=== PATIENT | male | born 1940 | race Caucasian/White ===

== ENCOUNTER 2017-11-05 13:05 | Inpatient (IN) | payer MEDICARE ==
[2017-11-05] MEDS ORDERED: SODIUM CHLORIDE 0.9% 500 ML IV ONE (14:19)
[2017-11-05] MEDS ORDERED: ONDANSETRON 4 MG/2 ML VIAL IVP STA (14:19)
[2017-11-05] MEDS ORDERED: SODIUM CHLORIDE 0.9% 1,000 ML IV ONE ×2 (14:19→16:23)
--- NOTE | 2017-11-05 14:22 | ED ---
General Adult HPI - General Chief complaint: Recheck/Abnormal Lab/Rx Stated complaint: fever, diarrhea Time Seen by Provider: 11/05/17 13:35 Source: patient, RN notes reviewed Mode of arrival: wheelchair Limitations: no limitations - History of Present Illness Initial comments: This is a 77-year-old male with past medical history significant for bladder cancer. Patient states he had the original tumor removed using cystoscopy. Patient is also a chemotherapy which was stopped on October 30 because he couldn't tolerate the chemo anymore. Patient also is receiving radiation therapy. Patient states his last radiation treatment was on Sunday. Patient states the radiation is also caused him to have diarrhea and he has been having now for one week. Patient also is complaining of some internal rectal pain. Patient states she is also having some blood with his diarrhea at this point. Patient comes in today because of the pain and the fact that he has not been eating anything. Patient states she's nauseated but has not vomited. Patient also had 103 fever according to his gave him 2 extra strength Tylenol also here today. Patient denies any cough or difficult to breathing or shortness of breath. Patient denies any chest pain. Patient denies any dysuria hematuria urinary frequency. Patient does state that his stream is weak and over the last few weeks. Patient denies any skin lesions rashes or areas of erythema. - Related Data Home Medications Medication Instructions Recorded Confirmed ALPRAZolam [Xanax] 0.5 mg PO Q6H PRN 11/05/17 11/05/17 Acetaminophen/Diphenhydramine 1 tab PO HS 11/05/17 11/05/17 [Tylenol PM 500-25mg] Acyclovir 400 mg PO DAILY 11/05/17 11/05/17 Aspirin EC [Ecotrin Low Dose] 81 mg PO DAILY 11/05/17 11/05/17 Cilostazol [Pletal] 50 mg PO DAILY 11/05/17 11/05/17 Doxazosin Mesylate [Cardura] 8 mg PO HS 11/05/17 11/05/17 Hydrocortisone [Cortef] 5 mg PO HS 11/05/17 11/05/17 Hydrocortisone [Cortef] 15 mg PO QAM 11/05/17 11/05/17 Insulin NPL/Insulin Lispro 16 unit SQ 11/05/17 11/05/17 [humaLOG MIX 75-25 VIAL] Insulin NPL/Insulin Lispro 30 unit SQ QAM 11/05/17 11/05/17 [humaLOG MIX 75-25 VIAL] Levothyroxine Sodium [Synthroid] 75 mcg PO DAILY 11/05/17 11/05/17 Losartan Potassium 100 mg PO DAILY 11/05/17 11/05/17 Metoprolol Succinate (ER) [Toprol 25 mg PO DAILY 11/05/17 11/05/17 Xl] Metoprolol Succinate (ER) [Toprol 50 mg PO HS 11/05/17 11/05/17 Xl] Midodrine HCl [ProAmatine] 2.5 mg PO HS 11/05/17 11/05/17 Prochlorperazine [Compazine] 10 mg PO Q6H PRN 11/05/17 11/05/17 Rosuvastatin [Crestor] 10 mg PO HS 11/05/17 11/05/17 Allergies Allergy/AdvReac Type Severity Reaction Status Date / Time Iodinated Contrast- Oral and AdvReac KIDNEY Verified 11/05/17 14:11 IV Dye ISSUES Review of Systems ROS Statement: Those systems with pertinent positive or pertinent negative responses have been documented in the HPI. ROS Other: All systems not noted in ROS Statement are negative. Past Medical History Past Medical History: CVA/TIA, Diabetes Mellitus, Hypertension, Myocardial Infarction ([place]) Additional Past Medical History / Comment(s): bladder ca, adrenal insuff, kidney disease stage 3 History of Any Multi-Drug Resistant Organisms: None Reported Past Surgical History: Heart Catheterization, Orthopedic Surgery Additional Past Surgical History / Comment(s): shoulder Past Psychological History: No Psychological Hx Reported Smoking Status: Former smoker Past Alcohol Use History: Occasional Past Drug Use History: None Reported General Exam - General Exam Comments Initial Comments: GENERAL: Patient is well-developed and well-nourished. Patient is nontoxic and well- hydrated and is in mild distress. ENT: Neck is soft and supple. No significant lymphadenopathy is noted. Oropharynx is clear. Moist mucous membranes. Neck has full range of motion without eliciting any pain. EYES: The sclera were anicteric and conjunctiva were pink and moist. Extraocular movements were intact and pupils were equal round and reactive to light. Eyelids were unremarkable. PULMONARY: Unlabored respirations. Good breath sounds bilaterally. No audible rales rhonchi or wheezing was noted. CARDIOVASCULAR: There is a regular rate and rhythm without any murmurs gallops or rubs. ABDOMEN: Patient has some mild pubic tenderness. No rebound or guarding noted. No palpable organomegaly was noted. There is no palpable pulsatile mass. SKIN: Skin is clear with no lesions or rashes and otherwise unremarkable. NEUROLOGIC: Patient is alert and oriented x3. Cranial nerves II through XII are grossly intact. Motor and sensory are also intact. Normal speech, volume and content. Symmetrical smile. MUSCULOSKELETAL: Normal extremities with adequate strength and full range of motion. No lower extremity swelling or edema. No calf tenderness. LYMPHATICS: No significant lymphadenopathy is noted PSYCHIATRIC: Normal psychiatric evaluation. Limitations: no limitations Course Vital Signs 11/05/17 11/05/17 13:35 16:02 Temperature 98.4 F 99.1 F Pulse Rate 84 93 Respiratory 20 20 Rate Blood Pressure 108/55 130/58 O2 Sat by Pulse 98 94 L Oximetry Medical Decision Making - Medical Decision Making Patient's x-ray shows no acute abnormality. I spoke with the [place] emergency department physicians I admitted the patient and consult oncology - Lab Data Result diagrams: 11/05/17 14:54 11/05/17 14:54 Lab Results 11/05/17 11/05/17 11/05/17 Range/Units 14:54 14:54 14:54 WBC 7.7 (3.8-10.6) k/uL RBC 2.41 L (4.30-5.90) m/uL Hgb 8.6 L (13.0-17.5) gm/dL Hct 24.3 L (39.0-53.0) % MCV 100.7 H (80.0-100.0) fL MCH 35.6 H (25.0-35.0) pg MCHC 35.4 (31.0-37.0) g/dL RDW 14.2 (11.5-15.5) % Plt Count 150 (150-450) k/uL Neutrophils % 85 % Lymphocytes % 3 % Monocytes % 9 % Eosinophils % 1 % Basophils % 0 % Neutrophils # 6.5 (1.3-7.7) k/uL Lymphocytes # 0.3 L (1.0-4.8) k/uL Monocytes # 0.7 (0-1.0) k/uL Eosinophils # 0.1 (0-0.7) k/uL Basophils # 0.0 (0-0.2) k/uL Macrocytosis Slight Sodium 133 L (137-145) mmol/L Potassium 3.5 (3.5-5.1) mmol/L Chloride 96 L (98-107) mmol/L Carbon Dioxide 22 (22-30) mmol/L Anion Gap 15 mmol/L BUN 41 H (9-20) mg/dL Creatinine 4.09 H (0.66-1.25) mg/dL Est GFR (CKD-EPI)AfAm 15 (>60 ml/min/1.73 sqM) Est GFR (CKD-EPI)NonAf 13 (>60 ml/min/1.73 sqM) Glucose 211 H (74-99) mg/dL Plasma Lactic Acid [place] (0.7-2.0) mmol/L Calcium 8.4 (8.4-10.2) mg/dL Total Bilirubin 0.5 (0.2-1.3) mg/dL AST 24 (17-59) U/L ALT 28 (21-72) U/L Alkaline Phosphatase 76 (38-126) U/L Total Protein 4.9 L (6.3-8.2) g/dL Albumin 3.1 L (3.5-5.0) g/dL Urine Color Urine Appearance (Clear) Urine pH (5.0-8.0) Ur Specific [place] (1.001-1.035) Urine Protein (Negative) Urine Glucose (UA) (Negative) Urine Ketones (Negative) Urine Blood (Negative) Urine Nitrite (Negative) Urine Bilirubin (Negative) Urine Urobilinogen (<2.0) mg/dL Ur Leukocyte Esterase (Negative) Urine RBC (0-5) /hpf Urine WBC (0-5) /hpf Amorphous Sediment (None) /hpf Hyaline Casts (0-2) /lpf Urine Mucus (None) /hpf Blood Type A Positive Blood Type Recheck CABO Indicated Antibody Screen POSITIVE Spec Expiration Date 11/08/2017235311/05/17 11/05/17 Range/Units 14:54 16:06 WBC (3.8-10.6) k/uL RBC (4.30-5.90) m/uL Hgb (13.0-17.5) gm/dL Hct (39.0-53.0) % MCV (80.0-100.0) fL MCH (25.0-35.0) pg MCHC (31.0-37.0) g/dL RDW (11.5-15.5) % Plt Count (150-450) k/uL Neutrophils % % Lymphocytes % % Monocytes % % Eosinophils % % Basophils % % Neutrophils # (1.3-7.7) k/uL Lymphocytes # (1.0-4.8) k/uL Monocytes # (0-1.0) k/uL Eosinophils # (0-0.7) k/uL Basophils # (0-0.2) k/uL Macrocytosis Sodium (137-145) mmol/L Potassium (3.5-5.1) mmol/L Chloride (98-107) mmol/L Carbon Dioxide (22-30) mmol/L Anion Gap mmol/L BUN (9-20) mg/dL Creatinine (0.66-1.25) mg/dL Est GFR (CKD-EPI)AfAm (>60 ml/min/1.73 sqM) Est GFR (CKD-EPI)NonAf (>60 ml/min/1.73 sqM) Glucose (74-99) mg/dL Plasma Lactic Acid [place]ld[place] 0.7 (0.7-2.0) mmol/L Calcium (8.4-10.2) mg/dL Total Bilirubin (0.2-1.3) mg/dL AST (17-59) U/L ALT (21-72) U/L Alkaline Phosphatase (38-126) U/L Total Protein (6.3-8.2) g/dL Albumin (3.5-5.0) g/dL Urine Color Yellow Urine Appearance Cloudy (Clear) Urine pH 5.5 (5.0-8.0) Ur Specific [place] 1.012 (1.001-1.035) Urine Protein 2+ H (Negative) Urine Glucose (UA) 2+ H (Negative) Urine Ketones Trace H (Negative) Urine Blood Moderate H (Negative) Urine Nitrite Negative (Negative) Urine Bilirubin Negative (Negative) Urine Urobilinogen <2.0 (<2.0) mg/dL Ur Leukocyte Esterase Negative (Negative) Urine RBC 13 H (0-5) /hpf Urine WBC 4 (0-5) /hpf Amorphous Sediment Rare H (None) /hpf Hyaline Casts 17 H (0-2) /lpf Urine Mucus Rare H (None) /hpf Blood Type Blood Type Recheck Antibody Screen Spec Expiration Date Disposition Clinical Impression: GI bleed, Renal failure, Anemia, Rectal pain Disposition: ADMITTED IP TO THIS HOSP Referrals: Nonstaff,Physician [REFERRING] - 1-2 days Time of Disposition: 16:22
[2017-11-05 15:13] LABS: Basophils % (A) 0 %; Eosinophils # (A) 0.1 k/uL (0-0.7); Eosinophils % (A) 1 %; HCT 24.3 % (39.0-53.0); HGB 8.6 gm/dL (13.0-17.5); Lymphocytes # (A) 0.3 k/uL (1.0-4.8); Lymphocytes % (A) 3 %; MCH 35.6 pg (25.0-35.0); MCHC 35.4 g/dL (31.0-37.0); MCV 100.7 fL (80.0-100.0); Macrocytosis Slight; Mean Platelet Volume 6.7; Monocytes # (A) 0.7 k/uL (0-1.0); Monocytes % (A) 9 %; Neutrophils # (A) 6.5 k/uL (1.3-7.7); Neutrophils % (A) 85 %; Platelet Count 150 k/uL (150-450); RBC 2.41 m/uL (4.30-5.90); RDW 14.2 % (11.5-15.5); WBC 7.7 k/uL (3.8-10.6)
--- NOTE | 2017-11-05 15:20 | XR ---
EXAMINATION TYPE: XR chest 2V DATE OF EXAM: 11/05/2017 COMPARISON: NONE HISTORY: Difficulty breathing, fever and bladder carcinoma TECHNIQUE: Frontal and lateral views of the chest are obtained. FINDINGS: There is no focal air space opacity, pleural effusion, or pneumothorax seen. The cardiac silhouette size is within normal limits. The osseous structures are remarkable for possible distal right clavicular resection. Port-A-Cath present in the right pectoral region by the internal jugular approach, distal tip overlying the superior vena cava. IMPRESSION: No acute cardiopulmonary process.
[2017-11-05 15:24] LABS: Albumin 3.1 g/dL (3.5-5.0); Calcium 8.4 mg/dL (8.4-10.2); Potassium 3.5 mmol/L (3.5-5.1); Total Bilirubin 0.5 mg/dL (0.2-1.3); Total Protein 4.9 g/dL (6.3-8.2)
[2017-11-05 16:18] LABS: Amorphous Sediment,Urine Rare /hpf; Appearance,Urine Cloudy (Clear); Bilirubin,Urine Negative (Negative); Blood,Urine Moderate (Negative); Color,Urine Yellow; Glucose,Urine (UA) 2+ (Negative); Hyaline Casts,Urine 17 /lpf (0-2); Ketones,Urine Trace (Negative); Leukocyte Esterase,Urine Negative (Negative); Mucus,Urine Rare /hpf; Nitrite,Urine Negative (Negative); PH, Urine 5.5 (5.0-8.0); Protein,Urine 2+ (Negative); RBC,Urine 13 /hpf (0-5); Specific Gravity,Urine 1.012 (1.001-1.035); Urobilinogen,Urine <2.0 mg/dL (<2.0); WBC,Urine 4 /hpf (0-5)
[2017-11-05] MEDS ORDERED: MORPHINE SULFATE 2 MG/ML SYRINGE IVP STA (16:55)
[2017-11-05] MEDS ORDERED: ACETAMINOPHEN TAB 325 MG TAB PO PRN (17:37)
[2017-11-05] MEDS ORDERED: NALOXONE 0.4 MG/ML 1 ML VIAL IV PRN (17:37)
[2017-11-05] MEDS ORDERED: HYDROcodone/APAP 5-325MG 1 EACH TAB PO PRN (17:37)
[2017-11-05] MEDS ORDERED: ALPRAZolam 0.25 MG TAB PO PRN (17:37)
[2017-11-05] MEDS ORDERED: PROCHLORPERAZINE 10 MG TAB PO PRN (17:53)
[2017-11-05] MEDS ORDERED: ALPRAZolam 0.5 MG TAB PO PRN (17:53)
--- NOTE | 2017-11-05 18:15 | P.HPIM ---
History of Present Illness H&P Date: 11/05/17 Chief Complaint: Diarrhea and rectal pain Patient is a 77-year-old male with a past medical history of bladder cancer currently undergoing chemo and radiation, M protein being treated as multiple myeloma, hypertension, diabetes, hypothyroidism, chronic kidney disease stage 3/4 and adrenal insufficiency who presented to the ER with complaints of severe rectal pain. In the emergency department he underwent extensive evaluation. His initial vital signs were within normal limits. Initial laboratory analysis showed a macrocytic anemia, light hyponatremia, and an elevated creatinine. There was concern for GI bleed and infection. Patient was started on Zosyn, IV fluids, and pain medications. Arrangements were made for admission for acute kidney injury. Patient seen and examined at bedside in the emergency department. He states that he has been suffering from diarrhea with bright red blood per rectum and rectal pain for the last one week which is worsening. Today he had his took his fever and was 103.6. They called Dr. Erazo his radiation oncologist office who told him to proceed to the ER. He reports that his rectal pain sometimes radiates to the suprapubic area. It is worse when he is having gas or defecating. He has had some nausea but no active vomiting. He has had significant weight loss of 5 pounds over the last week and has a decreased appetite. He isn't feeling short of breath for the last 1-2 days. He feels fatigued and weak. He has a chronic stuffy nose which is unchanged. He denies any chest pain or palpitations. He recently had radiation to the prostate area on November 02. This was his 12th treatment. He had also been undergoing chemotherapy with 5-FU but this was held due to his decreasing counts in sodium levels. He has a history of chronic kidney disease stage 3/4. His was believes his creatinine has been near 4. 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 Leonardo Grey. Review of Systems Pertinent positives and negatives as discussed in HPI, a complete review of systems was performed and all other systems are negative. 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, history of a CVA and TIA, hypothyroidism, elevated M protein in his urine which is being treated as multiple myeloma History of Any Multi-Drug Resistant Organisms: None Reported Past Surgical History: Heart Catheterization, Orthopedic Surgery Additional Past Surgical History / Comment(s): shoulder, port placed in right chest wall, left breast surgery for gynecomastia Past Psychological History: No Psychological Hx Reported Smoking Status: Former smoker Past Alcohol Use History: Occasional Past Drug Use History: None Reported Additional History: Lives with his , no assistive devices - Past Family History Mother Additional Family Medical History / Comment(s): from congestive heart failure Father Additional Family Medical History / Comment(s): from congestive heart failure Medications and Allergies Home Medications Medication Instructions Recorded Confirmed Type ALPRAZolam [Xanax] 0.5 mg PO Q6H PRN 11/05/17 11/05/17 History Acetaminophen/Diphenhydramine 1 tab PO 11/05/17 11/05/17 History [Tylenol PM 500-25mg] Acyclovir 400 mg PO DAILY 11/05/17 11/05/17 History Aspirin EC [Ecotrin Low Dose] 81 mg PO DAILY 11/05/17 11/05/17 History Cilostazol [Pletal] 50 mg PO DAILY 11/05/17 11/05/17 History Doxazosin Mesylate [Cardura] 8 mg PO 11/05/17 11/05/17 History Hydrocortisone [Cortef] 5 mg PO 11/05/17 11/05/17 History Hydrocortisone [Cortef] 15 mg PO [facility] 11/05/17 11/05/17 History Insulin NPL/Insulin Lispro 16 unit SQ 11/05/17 11/05/17 History [humaLOG MIX 75-25 VIAL] Insulin NPL/Insulin Lispro 30 unit SQ [facility] 11/05/17 11/05/17 History [humaLOG MIX 75-25 VIAL] Levothyroxine Sodium [Synthroid] 75 mcg PO DAILY 11/05/17 11/05/17 History Losartan Potassium 100 mg PO DAILY 11/05/17 11/05/17 History Metoprolol Succinate (ER) [Toprol 25 mg PO DAILY 11/05/17 11/05/17 History Xl] Metoprolol Succinate (ER) [Toprol 50 mg PO 11/05/17 11/05/17 History Xl] Midodrine HCl [ProAmatine] 2.5 mg PO 11/05/17 11/05/17 History Prochlorperazine [Compazine] 10 mg PO Q6H PRN 11/05/17 11/05/17 History Rosuvastatin [Crestor] 10 mg PO HS 11/05/17 11/05/17 History Allergies Allergy/AdvReac Type Severity Reaction Status Date / Time Iodinated Contrast- Oral and AdvReac KIDNEY Verified 11/05/17 14:11 IV Dye ISSUES Physical Exam Osteopathic Statement: *. No significant issues noted on an osteopathic structural exam other than those noted in the History and Physical/Consult. Vitals: Vital Signs Temp Pulse Resp BP Pulse Ox 11/05/17 16:02 99.1 F 93 20 130/58 94 L 11/05/17 13:35 98.4 F 84 20 108/55 98 Intake and Output 11/05/17 11/05/17 11/05/17 06:59 14:59 22:59 Other: Weight 90.356 kg General: non toxic, mild distress secondary to pain, appears at stated age, normal weight Derm: no unusual rashes/lesions multiple areas of ecchymosis in various stages of healing, warm, dry Head: atraumatic, normocephalic, symmetric Eyes: EOMI, no lid lag, anicteric sclera, pupils equal round reactive to light ENT: Nose and ears atraumatic, no thrush, no pharyngeal erythema Neck: No thyromegaly, no cervical lymphadenopathy, trachea midline, supple Mouth: no lip lesion, mucous membranes dry Cardiovascular: S1S2 reg, no murmur, positive posterior tibial pulse bilateral, no edema, capillary refill less than 2 seconds Lungs: CTA bilateral, no rhonchi, no rales , no accessory muscle use Abdominal: soft, tender to palpation left lower quadrant, no guarding, no appreciable organomegaly, normal bowel sounds Ext: no gross muscle atrophy, muscle strength 5 out of 5 in all 4 extremities grossly, no contractures, Neuro: CN II-XI grossly intact, light touch intact all 4 extremities, finger to nose within normal limits, Psych: Alert, oriented, appropriate affect Results CBC & Chem 7: 11/05/17 14:54 11/05/17 14:54 Labs: Abnormal Lab Results - Last 24 Hours (Table) 11/05/17 11/05/17 11/05/17 Range/Units 14:54 14:54 16:06 RBC 2.41 L (4.30-5.90) m/uL Hgb 8.6 L (13.0-17.5) gm/dL Hct 24.3 L (39.0-53.0) % MCV 100.7 H (80.0-100.0) fL MCH 35.6 H (25.0-35.0) pg Lymphocytes # 0.3 L (1.0-4.8) k/uL Sodium 133 L (137-145) mmol/L Chloride 96 L (98-107) mmol/L BUN 41 H (9-20) mg/dL Creatinine 4.09 H (0.66-1.25) mg/dL Glucose 211 H (74-99) mg/dL Total Protein 4.9 L (6.3-8.2) g/dL Albumin 3.1 L (3.5-5.0) g/dL Urine Protein 2+ H (Negative) Urine Glucose (UA) 2+ H (Negative) Urine Ketones Trace H (Negative) Urine Blood Moderate H (Negative) Urine RBC 13 H (0-5) /hpf Amorphous Sediment Rare H (None) /hpf Hyaline Casts 17 H (0-2) /lpf Urine Mucus Rare H (None) /hpf Thrombosis Risk Factor Assmnt - DVT/VTE Prophylaxis DVT/VTE Prophylaxis: Mechanical Prophylaxis ordered Assessment and Plan Assessment: Rectal pain associated with diarrhea and bleeding and fever, 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 Macrocytic anemia -At baseline per the patient, had blood transfusion prior to removal of bladder tumor on 10/17 -Follow CBC -Type and cross 2 units Hyponatremia, improved with a baseline of 126 with an outpatient -IV fluids -Follow sodium levels Diabetes mellitus type 2, insulin-dependent -Sliding-scale insulin -Check hemoglobin A1c -Will decreased the NPH in his home insulin while on clear liquids Adrenal insufficiency -No signs of adrenal crisis -Continue with hydrocortisone 15 in the morning and 5 at night orally Hypothyroidism -Continue with Synthroid Hypertension, controlled -Continue with metoprolol -Cozaar on hold -Follow blood pressures The patient is admitted with an anticipated greater than 2 midnight stay for evaluation of probable proctitis and acute kidney injury. Surrogate decision-maker: -Laura CODE STATUS: DO NOT RESUSCITATE DVT prophylaxis: SCDs secondary to probable blood in stool Discussed with: Patient, ED physician, ED nursing, Anticipated discharge date: Anticipated discharge place: Home with home health A total of 75 minutes was spent on the care of this complex patient more than 50 % of the time was spent in counseling and care coordination.
[2017-11-05] MEDS: LEVOFLOXACIN 500MG-D5W PMX 500 MG in DEXTROSE/WATER 1 100ML.BAG IVPB STA ×2 (18:49→18:54)
--- NOTE | 2017-11-05 19:23 | CT ---
EXAMINATION TYPE: CT abdomen pelvis wo con DATE OF EXAM: 11/05/2017 COMPARISON: 08/09/2017 HISTORY: Rectal pain and diarrhea. CT DLP: 747.2 mGycm Automated exposure control for dose reduction was used. TECHNIQUE: Helical acquisition of images was performed from the lung bases through the pelvis. FINDINGS: There is mild reticular density at the right posterior lung base consistent with subsegmental atelect asis or scarring. There is small pericardial effusion. Liver shows no focal defect. Gallbladder is mi ldly dilated and measures 4.8 cm in diameter. The bile ducts are not dilated. Spleen appears normal. There is no pancreatic mass. There is no adrenal mass. Kidneys show normal size. There is no hydronep hrosis. Ureters are not dilated. Abdominal aorta is atheromatous. There is no retroperitoneal adenopa thy. Bladder distends smoothly. There is minimal fat stranding around the distal sigmoid colon. There is no evidence of a mechanical bowel obstruction. There are no dilated loops. There are mild spondyl otic changes in the lumbar spine. I see no bony destructive process. There is no compression fracture . There is mild wall thickening of the distal rectosigmoid colon. There is no ascites. There is no si gn of free air. IMPRESSION: SMALL PERICARDIAL EFFUSION IS UNCHANGED. MILD INFLAMMATORY CHANGES OF THE DISTAL RECTOSIGMOID COLON CONSISTENT WITH COLITIS. THIS APPEARS NEW COMPARED TO OLD EXAM. SIGMOID DIVERTICULOSIS.
[2017-11-05] MEDS: INSULIN NPH 300 UNIT/3 ML VIAL SQ SCH (20:00)
[2017-11-05] MEDS: metroNIDAZOLE-NS PMX 500 MG in SALINE 1 100ML.BAG IVPB SCH (20:02)
[2017-11-05] MEDS: SODIUM CHLORIDE 0.9% 1,000 ML IV SCH (20:02)
[2017-11-05 20:15] LABS: Basophils % (A) 0 %; Eosinophils # (A) 0.1 k/uL (0-0.7); Eosinophils % (A) 1 %; HCT 22.6 % (39.0-53.0); HGB 7.6 gm/dL (13.0-17.5); Lymphocytes # (A) 0.3 k/uL (1.0-4.8); Lymphocytes % (A) 5 %; MCH 34.4 pg (25.0-35.0); MCHC 33.8 g/dL (31.0-37.0); MCV 101.7 fL (80.0-100.0); Macrocytosis Slight; Mean Platelet Volume 6.7; Monocytes # (A) 0.5 k/uL (0-1.0); Monocytes % (A) 8 %; Neutrophils # (A) 5.9 k/uL (1.3-7.7); Neutrophils % (A) 85 %; Platelet Count 151 k/uL (150-450); RBC 2.22 m/uL (4.30-5.90); RDW 14.3 % (11.5-15.5); WBC 6.9 k/uL (3.8-10.6)
[2017-11-05 20:17] LABS: Glucose,Whole Blood 202 mg/dL (75-99)
[2017-11-05] MEDS ORDERED: HYDROCORTISONE 10 MG TAB PO SCH (21:00)
[2017-11-05] MEDS: METOPROLOL SUCCINATE (ER) 50 MG TAB.ER.24H PO SCH (21:29)
[2017-11-05] MEDS: ATORVASTATIN 20 MG TAB PO SCH (21:29)
[2017-11-05] MEDS: DOXAZOSIN 4 MG TAB PO SCH (21:29)
[2017-11-05] MEDS: MIDODRINE 5 MG TAB PO SCH (21:30)
[2017-11-05] MEDS: diphenhydrAMINE 25 MG CAP PO SCH (21:35)
[2017-11-05] MEDS: ACETAMINOPHEN TAB 500 MG TAB PO SCH (21:35)
[2017-11-05] MEDS: INSULIN ASPART 100 UNIT/ML 1 ML 10 ML VIAL SQ SCH (21:35)
[2017-11-06 03:44] LABS: Hemoglobin A1C 6.6 % (4.0-6.0)
[2017-11-06] MEDS: metroNIDAZOLE-NS PMX 500 MG in SALINE 1 100ML.BAG IVPB SCH ×2 (04:20→12:50)
[2017-11-06] MEDS: LEVOTHYROXINE 75 MCG TAB PO SCH (06:15)
[2017-11-06 07:06] LABS: Glucose,Whole Blood 133 mg/dL (75-99)
[2017-11-06] MEDS: MORPHINE SULFATE 2 MG/ML SYRINGE IV PRN (08:07)
[2017-11-06] MEDS: SODIUM CHLORIDE 0.9% 1,000 ML IV SCH ×2 (08:07→17:53)
[2017-11-06] MEDS: INSULIN ASPART 100 UNIT/ML 1 ML 10 ML VIAL SQ SCH ×4 (08:10→21:43)
[2017-11-06] MEDS: INSULIN NPH 300 UNIT/3 ML VIAL SQ SCH ×2 (08:10→17:52)
[2017-11-06] MEDS: ACYCLOVIR 200 MG CAP PO SCH (08:12)
[2017-11-06] MEDS: CILOSTAZOL 100 MG TAB PO SCH (08:12)
[2017-11-06] MEDS: HYDROCORTISONE 10 MG TAB PO SCH (08:13)
[2017-11-06] MEDS: METOPROLOL SUCCINATE (ER) 25 MG TAB.ER.24H PO SCH (08:14)
[2017-11-06 08:48] LABS: HCT 22.5 % (39.0-53.0); HGB 7.8 gm/dL (13.0-17.5); MCH 34.8 pg (25.0-35.0); MCHC 34.4 g/dL (31.0-37.0); Macrocytosis Slight; Mean Platelet Volume 6.7; Platelet Count 124 k/uL (150-450); RBC 2.23 m/uL (4.30-5.90); RDW 13.5 % (11.5-15.5); WBC 6.6 k/uL (3.8-10.6)
[2017-11-06 08:53] LABS: INR 1.2 (<1.2); Prothrombin Time 11.6 sec (9.0-12.0)
[2017-11-06 09:08] LABS: Albumin 2.7 g/dL (3.5-5.0); Calcium 7.9 mg/dL (8.4-10.2); Magnesium 1.9 mg/dL (1.6-2.3); Phosphorus 4.6 mg/dL (2.5-4.5); Potassium 3.8 mmol/L (3.5-5.1); Total Bilirubin 0.3 mg/dL (0.2-1.3); Total Protein 4.5 g/dL (6.3-8.2)
[2017-11-06 09:29] VITALS: BMI 32.1
--- NOTE | 2017-11-06 10:41 | P.CONS ---
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 He is status post TURBT, and elected to undergo bladder preservation therapy. He has completed planned radiotherapy treatments and 1 cycle of 5FU based chemotherapy before becoming hospitalized on 11/05/17. He also has a history of MGRS with chronic kidney disease - has had chemotherapy for this in the past. The patient reported over the past week he developed frequent loose stools. He did develop some bright red blood mixed with the stool, which is not a large amount per the patient. He started having a fever at home reportedly at 103. Since admission he was started on Flagyl/Levaquin and Cdif is pending. He reports he is having rectal discomfort at this time, which is more severe with bowel movements or with sitting down. CT of the abdomen/pelvis showed minimal thickening/stranding of the distal rectosigmoid. He follows with Dr. Grey in medical oncology out of [place]. Review of Systems All systems: negative Constitutional: Reports chills, Reports fever Eyes: denies blurred vision Ears: deny: decreased hearing Ears, nose, mouth and throat: Denies epistaxis Cardiovascular: Denies chest pain Respiratory: Denies cough Gastrointestinal: Reports abdominal pain, Reports BRBPR, Reports diarrhea Genitourinary: Denies dysuria, Denies hematuria Musculoskeletal: Denies fractures Integumentary: Denies pruritus, Denies rash Neurological: Reports ataxia Psychiatric: Denies anxiety, Denies depression Endocrine: Denies fatigue, Denies weight change Past Medical History Past Medical History: Cancer, CVA/TIA, Diabetes Mellitus, Hypertension, Myocardial Infarction ([place]), Thyroid Disorder Additional Past Medical History / Comment(s): bladder ca pt stated he had chemo last sundayoctober 30 and radiation 0n 7-6-18, adrenal insuff, 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 upper) Last Myocardial Infarction Date:: unk History of Any Multi-Drug Resistant Organisms: None Reported Past Surgical History: Heart Catheterization, Orthopedic Surgery Additional Past Surgical History / Comment(s): rt shoulder, port placed in right chest wall, left breast surgery for gynecomastia, cataracts, cystocscopy- bladder tumor removed.rt ear sx Past Anesthesia/Blood Transfusion Reactions: Motion Sickness Additional Past Anesthesia/Blood Transfusion Reaction / Comm: mild clausterphobia. blood transfusion -no reaction Past Psychological History: No Psychological Hx Reported Smoking Status: Former smoker Past Alcohol Use History: None Reported Past Drug Use History: None Reported - Past Family History Mother Family Medical History: Congestive Heart Failure (CHF) Additional Family Medical History / Comment(s): at age 85-chf Father Family Medical History: Myocardial Infarction ([place]) Additional Family Medical History / Comment(s): at age 47 Medications and Allergies Home Medications Medication Instructions Recorded Confirmed Type ALPRAZolam [Xanax] 0.5 mg PO Q6H PRN 11/05/17 11/05/17 History Acetaminophen/Diphenhydramine 1 tab PO 11/05/17 11/05/17 History [Tylenol PM 500-25mg] Acyclovir 400 mg PO DAILY 11/05/17 11/05/17 History Aspirin EC [Ecotrin Low Dose] 81 mg PO DAILY 11/05/17 11/05/17 History Cilostazol [Pletal] 50 mg PO DAILY 11/05/17 11/05/17 History Doxazosin Mesylate [Cardura] 8 mg PO 11/05/17 11/05/17 History Hydrocortisone [Cortef] 5 mg PO 11/05/17 11/05/17 History Hydrocortisone [Cortef] 15 mg PO [facility] 11/05/17 11/05/17 History Insulin NPL/Insulin Lispro 16 unit SQ 11/05/17 11/05/17 History [humaLOG MIX 75-25 VIAL] Insulin NPL/Insulin Lispro 30 unit SQ QA 11/05/17 11/05/17 History [humaLOG MIX 75-25 VIAL] Levothyroxine Sodium [Synthroid] 75 mcg PO DAILY 11/05/17 11/05/17 History Losartan Potassium 100 mg PO DAILY 11/05/17 11/05/17 History Metoprolol Succinate (ER) [Toprol 25 mg PO DAILY 11/05/17 11/05/17 History Xl] Metoprolol Succinate (ER) [Toprol 50 mg PO HS 11/05/17 11/05/17 History Xl] Midodrine HCl [ProAmatine] 2.5 mg PO HS 11/05/17 11/05/17 History Prochlorperazine [Compazine] 10 mg PO Q6H PRN 11/05/17 11/05/17 History Rosuvastatin [Crestor] 10 mg PO HS 11/05/17 11/05/17 History Allergies Allergy/AdvReac Type Severity Reaction Status Date / Time Iodinated Contrast- Oral and AdvReac KIDNEY Verified 11/05/17 14:11 IV Dye ISSUES Physical Exam Vitals: Vital Signs Temp Pulse Pulse Resp BP BP Pulse Ox 11/06/17 07:43 98.0 F 96 16 105/50 90 L 11/05/17 19:30 97.9 F 102 H 18 117/56 95 11/05/17 19:00 98.6 F 83 18 111/50 98 11/05/17 16:02 99.1 F 93 20 130/58 94 L 11/05/17 13:35 98.4 F 84 20 108/55 98 Intake and Output 11/05/17 11/06/17 11/06/17 22:59 06:59 14:59 Intake Total 975 Balance 975 Intake: IV 975 Sodium Chloride 0.9% 1, 875 000 ml @ 125 mls/hr IV . Q8H [facility] Rx#:[id number] metroNIDAZOLE-NS PMX 500 100 mg In Saline 1 100ml.bag @ 100 mls/hr IVPB Q8H [facility] Rx#:[id number] Other: Voiding Method Toilet Toilet # Voids 1 1 Weight 90.356 kg - Constitutional General appearance: disheveled, mild distress - EENT Eyes: EOMI ENT: no hard of hearing - Neck Neck: no lymphadenopathy - Respiratory Respiratory: bilateral: CTA - Cardiovascular Rhythm: irregularly irregular - Gastrointestinal General gastrointestinal: no organomegaly, soft, tenderness - Integumentary Integumentary: no calor, no flushed - Neurologic Neurologic: CNII-XII intact - Musculoskeletal Musculoskeletal: strength equal bilaterally - Psychiatric Psychiatric: A&O x's 3, appropriate affect Results CBC & Chem 7: 11/06/17 08:20 11/06/17 08:20 Labs: Abnormal Lab Results - Last 24 Hours (Table) 11/05/17 11/05/17 11/05/17 Range/Units 14:54 14:54 14:54 RBC 2.41 L (4.30-5.90) m/uL Hgb 8.6 L (13.0-17.5) gm/dL Hct 24.3 L (39.0-53.0) % MCV 100.7 H (80.0-100.0) fL MCH 35.6 H (25.0-35.0) pg Plt Count (150-450) k/uL Lymphocytes # 0.3 L (1.0-4.8) k/uL INR (<1.2) Sodium 133 L (137-145) mmol/L Chloride 96 L (98-107) mmol/L Carbon Dioxide (22-30) mmol/L BUN 41 H (9-20) mg/dL Creatinine 4.09 H (0.66-1.25) mg/dL Glucose 211 H (74-99) mg/dL POC Glucose (mg/dL) (75-99) mg/dL Hemoglobin A1c 6.6 H (4.0-6.0) % Calcium (8.4-10.2) mg/dL Phosphorus (2.5-4.5) mg/dL Total Protein 4.9 L (6.3-8.2) g/dL Albumin 3.1 L (3.5-5.0) g/dL Urine Protein (Negative) Urine Glucose (UA) (Negative) Urine Ketones (Negative) Urine Blood (Negative) Urine RBC (0-5) /hpf Amorphous Sediment (None) /hpf Hyaline Casts (0-2) /lpf Urine Mucus (None) /hpf 11/05/17 11/05/17 11/05/17 Range/Units 16:06 19:56 20:15 RBC 2.22 L (4.30-5.90) m/uL Hgb 7.6 L (13.0-17.5) gm/dL Hct 22.6 L (39.0-53.0) % MCV 101.7 H (80.0-100.0) fL MCH (25.0-35.0) pg Plt Count (150-450) k/uL Lymphocytes # 0.3 L (1.0-4.8) k/uL INR (<1.2) Sodium (137-145) mmol/L Chloride (98-107) mmol/L Carbon Dioxide (22-30) mmol/L BUN (9-20) mg/dL Creatinine (0.66-1.25) mg/dL Glucose (74-99) mg/dL POC Glucose (mg/dL) 202 H (75-99) mg/dL Hemoglobin A1c (4.0-6.0) % Calcium (8.4-10.2) mg/dL Phosphorus (2.5-4.5) mg/dL Total Protein (6.3-8.2) g/dL Albumin (3.5-5.0) g/dL Urine Protein 2+ H (Negative) Urine Glucose (UA) 2+ H (Negative) Urine Ketones Trace H (Negative) Urine Blood Moderate H (Negative) Urine RBC 13 H (0-5) /hpf Amorphous Sediment Rare H (None) /hpf Hyaline Casts 17 H (0-2) /lpf Urine Mucus Rare H (None) /hpf 11/06/17 11/06/17 11/06/17 Range/Units 07:05 08:20 08:20 RBC 2.23 L (4.30-5.90) m/uL Hgb 7.8 L (13.0-17.5) gm/dL Hct 22.5 L (39.0-53.0) % MCV 101.0 H (80.0-100.0) fL MCH (25.0-35.0) pg Plt Count 124 L (150-450) k/uL Lymphocytes # (1.0-4.8) k/uL INR 1.2 H (<1.2) Sodium (137-145) mmol/L Chloride (98-107) mmol/L Carbon Dioxide (22-30) mmol/L BUN (9-20) mg/dL Creatinine (0.66-1.25) mg/dL Glucose (74-99) mg/dL POC Glucose (mg/dL) 133 H (75-99) mg/dL Hemoglobin A1c (4.0-6.0) % Calcium (8.4-10.2) mg/dL Phosphorus (2.5-4.5) mg/dL Total Protein (6.3-8.2) g/dL Albumin (3.5-5.0) g/dL Urine Protein (Negative) Urine Glucose (UA) (Negative) Urine Ketones (Negative) Urine Blood (Negative) Urine RBC (0-5) /hpf Amorphous Sediment (None) /hpf Hyaline Casts (0-2) /lpf Urine Mucus (None) /hpf 11/06/17 Range/Units 08:20 RBC (4.30-5.90) m/uL Hgb (13.0-17.5) gm/dL Hct (39.0-53.0) % MCV (80.0-100.0) fL MCH (25.0-35.0) pg Plt Count (150-450) k/uL Lymphocytes # (1.0-4.8) k/uL INR (<1.2) Sodium 135 L (137-145) mmol/L Chloride (98-107) mmol/L Carbon Dioxide 21 L (22-30) mmol/L BUN 41 H (9-20) mg/dL Creatinine 3.83 H (0.66-1.25) mg/dL Glucose 110 H (74-99) mg/dL POC Glucose (mg/dL) (75-99) mg/dL Hemoglobin A1c (4.0-6.0) % Calcium 7.9 L (8.4-10.2) mg/dL Phosphorus 4.6 H (2.5-4.5) mg/dL Total Protein 4.5 L (6.3-8.2) g/dL Albumin 2.7 L (3.5-5.0) g/dL Urine Protein (Negative) Urine Glucose (UA) (Negative) Urine Ketones (Negative) Urine Blood (Negative) Urine RBC (0-5) /hpf Amorphous Sediment (None) /hpf Hyaline Casts (0-2) /lpf Urine Mucus (None) /hpf CT scan - abdomen: report reviewed, image reviewed Assessment and Plan Plan: 1. Bladder cancer: Finished radiation treatments and 1 week of chemotherapy, currently treatment on hold. Will discuss case with Dr. Grey/ Dr. Javier. Patient having significant difficulty despite only completing 1/3 of proposed treatment course. 2. Proctitis: This is very early in the course for a radiation induced proctitis, would recommend ruling out infectious proctitis. Recommend GI consult with possible proctoscopy. Time with Patient: Greater than 30
--- NOTE | 2017-11-06 11:19 | P.PN ---
Subjective Progress Note Date: 11/06/17 Principal diagnosis: rectal pain Patient is a 77-year-old male with a past medical history of bladder cancer currently undergoing chemo and radiation, MGRS, hypertension, diabetes, hypothyroidism, chronic kidney disease stage 3/4 and adrenal insufficiency who presented to the ER with complaints of severe rectal pain. In the emergency department he underwent extensive evaluation. His initial vital signs were within normal limits. Initial laboratory analysis showed a macrocytic anemia, light hyponatremia, and an elevated creatinine. There was concern for GI bleed and infection. Patient was started on zofran, IV fluids, and pain medications. Arrangements were made for admission for acute kidney injury. He was found to have probable proctitis radiation induced vs infectious. He was started on levaquin and flagyl. CT scan was obtained which showed inflammatory changes of the rectosigmoid colon. Radiation oncology was consulted. They felt it was early in the course of treatment to be radiation induced proctitis. GI was consulted. Patient seen and examined at bedside. He continues to have intermittent rectal pain which he states is better than yesterday. He is feeling sleepy from the pain medications. He states his all movements are less frequent and nurses have not noticed blood at this point in time. Denies any nausea or vomiting. He is tolerating his diet, but it was not appetizing so he did not eat much. Objective - Vital Signs Vital signs: Vital Signs Temp 98.0 F 11/06/17 07:43 Pulse 96 11/06/17 07:43 Resp 16 11/06/17 07:43 BP 105/50 11/06/17 07:43 Pulse Ox 90 L 11/06/17 07:43 Intake & Output 11/05/17 11/06/17 11/06/17 18:59 06:59 18:59 Intake Total 975 Balance 975 Weight 90.356 kg 90.356 kg Intake: IV 975 Sodium Chloride 0.9% 1, 875 000 ml @ 125 mls/hr IV . Q8H [facility] Rx#:[id number] metroNIDAZOLE-NS PMX 500 100 mg In Saline 1 100ml.bag @ 100 mls/hr IVPB Q8H [facility] Rx#:[id number] Other: Voiding Method Toilet Toilet # Voids 1 - Exam General: non toxic, no distress, appears younger than stated age Derm: warm, dry Head: atraumatic, normocephalic, symmetric Eyes: EOMI, no lid lag, anicteric sclera Mouth: no lip lesion, mucus membranes moist Cardiovascular: S1S2 reg, no murmur, positive posterior tibial pulse bilateral, Lungs: CTA bilateral, no rhonchi, no rales , no accessory muscle use Abdominal: soft, tender to palpation left lower quadrant, no guarding, no appreciable organomegaly, visual rectal exam performed with no signs of fissure or bright red blood per rectum, no hemorrhoids Ext: no gross muscle atrophy, no edema, no contractures Neuro: CN II-XI grossly intact, no focal neuro deficits Psych: Alert, oriented, appropriate affect - Labs CBC & Chem 7: 11/06/17 08:20 11/06/17 08:20 Labs: Abnormal Lab Results - Last 24 Hours (Table) 11/05/17 11/05/17 11/05/17 Range/Units 14:54 14:54 14:54 RBC 2.41 L (4.30-5.90) m/uL Hgb 8.6 L (13.0-17.5) gm/dL Hct 24.3 L (39.0-53.0) % MCV 100.7 H (80.0-100.0) fL MCH 35.6 H (25.0-35.0) pg Plt Count (150-450) k/uL Lymphocytes # 0.3 L (1.0-4.8) k/uL INR (<1.2) Sodium 133 L (137-145) mmol/L Chloride 96 L (98-107) mmol/L Carbon Dioxide (22-30) mmol/L BUN 41 H (9-20) mg/dL Creatinine 4.09 H (0.66-1.25) mg/dL Glucose 211 H (74-99) mg/dL POC Glucose (mg/dL) (75-99) mg/dL Hemoglobin A1c 6.6 H (4.0-6.0) % Calcium (8.4-10.2) mg/dL Phosphorus (2.5-4.5) mg/dL Total Protein 4.9 L (6.3-8.2) g/dL Albumin 3.1 L (3.5-5.0) g/dL Urine Protein (Negative) Urine Glucose (UA) (Negative) Urine Ketones (Negative) Urine Blood (Negative) Urine RBC (0-5) /hpf Amorphous Sediment (None) /hpf Hyaline Casts (0-2) /lpf Urine Mucus (None) /hpf 11/05/17 11/05/17 11/05/17 Range/Units 16:06 19:56 20:15 RBC 2.22 L (4.30-5.90) m/uL Hgb 7.6 L (13.0-17.5) gm/dL Hct 22.6 L (39.0-53.0) % MCV 101.7 H (80.0-100.0) fL MCH (25.0-35.0) pg Plt Count (150-450) k/uL Lymphocytes # 0.3 L (1.0-4.8) k/uL INR (<1.2) Sodium (137-145) mmol/L Chloride (98-107) mmol/L Carbon Dioxide (22-30) mmol/L BUN (9-20) mg/dL Creatinine (0.66-1.25) mg/dL Glucose (74-99) mg/dL POC Glucose (mg/dL) 202 H (75-99) mg/dL Hemoglobin A1c (4.0-6.0) % Calcium (8.4-10.2) mg/dL Phosphorus (2.5-4.5) mg/dL Total Protein (6.3-8.2) g/dL Albumin (3.5-5.0) g/dL Urine Protein 2+ H (Negative) Urine Glucose (UA) 2+ H (Negative) Urine Ketones Trace H (Negative) Urine Blood Moderate H (Negative) Urine RBC 13 H (0-5) /hpf Amorphous Sediment Rare H (None) /hpf Hyaline Casts 17 H (0-2) /lpf Urine Mucus Rare H (None) /hpf 11/06/17 11/06/17 11/06/17 Range/Units 07:05 08:20 08:20 RBC 2.23 L (4.30-5.90) m/uL Hgb 7.8 L (13.0-17.5) gm/dL Hct 22.5 L (39.0-53.0) % MCV 101.0 H (80.0-100.0) fL MCH (25.0-35.0) pg Plt Count 124 L (150-450) k/uL Lymphocytes # (1.0-4.8) k/uL INR 1.2 H (<1.2) Sodium (137-145) mmol/L Chloride (98-107) mmol/L Carbon Dioxide (22-30) mmol/L BUN (9-20) mg/dL Creatinine (0.66-1.25) mg/dL Glucose (74-99) mg/dL POC Glucose (mg/dL) 133 H (75-99) mg/dL Hemoglobin A1c (4.0-6.0) % Calcium (8.4-10.2) mg/dL Phosphorus (2.5-4.5) mg/dL Total Protein (6.3-8.2) g/dL Albumin (3.5-5.0) g/dL Urine Protein (Negative) Urine Glucose (UA) (Negative) Urine Ketones (Negative) Urine Blood (Negative) Urine RBC (0-5) /hpf Amorphous Sediment (None) /hpf Hyaline Casts (0-2) /lpf Urine Mucus (None) /hpf 11/06/17 Range/Units 08:20 RBC (4.30-5.90) m/uL Hgb (13.0-17.5) gm/dL Hct (39.0-53.0) % MCV (80.0-100.0) fL MCH (25.0-35.0) pg Plt Count (150-450) k/uL Lymphocytes # (1.0-4.8) k/uL INR (<1.2) Sodium 135 L (137-145) mmol/L Chloride (98-107) mmol/L Carbon Dioxide 21 L (22-30) mmol/L BUN 41 H (9-20) mg/dL Creatinine 3.83 H (0.66-1.25) mg/dL Glucose 110 H (74-99) mg/dL POC Glucose (mg/dL) (75-99) mg/dL Hemoglobin A1c (4.0-6.0) % Calcium 7.9 L (8.4-10.2) mg/dL Phosphorus 4.6 H (2.5-4.5) mg/dL Total Protein 4.5 L (6.3-8.2) g/dL Albumin 2.7 L (3.5-5.0) g/dL Urine Protein (Negative) Urine Glucose (UA) (Negative) Urine Ketones (Negative) Urine Blood (Negative) Urine RBC (0-5) /hpf Amorphous Sediment (None) /hpf Hyaline Casts (0-2) /lpf Urine Mucus (None) /hpf Assessment and Plan Assessment: Proctitis, probable infectious vs ischemic, less likely radiation induced -Prophylactic antibiotics with Flagyl and Levaquin -Stool for C. 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 Hypertension, controlled -Continue with metoprolol, parameters added -Cozaar on hold -Follow blood pressures Diabetes mellitus type 2, insulin-dependent -Sliding-scale insulin -Check hemoglobin A1c 6.6 - increase NPH to 15 units twice daily Macrocytic anemia -At baseline per the patient, had blood transfusion prior to removal of bladder tumor on 10/17 -Follow CBC Hyponatremia, improved with a baseline of 126 with an outpatient -IV fluids -Follow sodium levels Adrenal insufficiency -No signs of adrenal crisis -Continue with hydrocortisone 15 in the morning and 5 at night orally, may need stress dose closer to colonoscopy Hypothyroidism -Continue with Synthroid DVT prophylaxis: SCDs secondary to blood in stool Discussed with: Patient, nursing, Dr. Erazo Anticipated discharge date: Anticipated discharge place: Home with home health A total of 75 minutes was spent on the care of this complex patient more than 50 % of the time was spent in counseling and care coordination.
--- NOTE | 2017-11-06 11:21 | P.CONS ---
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 Last dose of radiation was Sunday. Patient admitted with 1 week history of multiple blood tinged bowel movements with lower abdominal pressure-like pain and new onset of fever T-max 103 at home. No history GI bleeding. His last colonoscopy was 10 years ago. Receiving empiric antibiotics. Stool studies requested. No recurrent fever since admission. No anticoagulants. Denies hematemesis or melena. No recent antibiotics. CT of the abdomen and pelvis without contrast reported mild inflammatory changes of the distal rectosigmoid colon consistent with colitis and sigmoid diverticulosis. White count 6.6-7.7. Hemoglobin 7.8-8.6. MCV 101 platelet 124. INR 1.2. BUN 41. Creatinine 4.0. LFTs within normal limits. Afebrile. Review of Systems Constitutional: Admitted with reports of fever chills. HEENT: Negative for migraines, blurred vision or loss, earaches, drainage, tinnitus, oral mucosal lesions, dysphagia, or odynophagia. Cardiac: Negative for chest pain, arrhythmias, or palpitation. Respiratory: Negative for shortness of breath, hemoptysis, cough, or sputum production. Gastrointestinal: See HPI for pertinent findings. Genitourinary: Negative for hematuria, urgency, frequency, polyuria, dysuria, or penile discharge. Musculoskeletal: Negative for muscle aches, swelling, arthritis, and arthralgias. Neurologic: Negative for stroke or TIA. Endocrine: Negative for thyroid problems. Skin: Negative for rash or itching. 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 upper) Last Myocardial Infarction Date:: unk History of Any Multi-Drug Resistant Organisms: None Reported Past Surgical History: Heart Catheterization, Orthopedic Surgery Additional Past Surgical History / Comment(s): rt shoulder, port placed in right chest wall, left breast surgery for gynecomastia, cataracts, cystocscopy- bladder tumor removed.rt ear sx Past Anesthesia/Blood Transfusion Reactions: Motion Sickness Additional Past Anesthesia/Blood Transfusion Reaction / Comm: mild clausterphobia. blood transfusion -no reaction Past Psychological History: No Psychological Hx Reported Smoking Status: Former smoker Past Alcohol Use History: None Reported Past Drug Use History: None Reported - Past Family History Mother Family Medical History: Congestive Heart Failure (CHF) Additional Family Medical History / Comment(s): at age 85-chf Father Family Medical History: Myocardial Infarction ([place]) Additional Family Medical History / Comment(s): at age 47 Medications and Allergies Home Medications Medication Instructions Recorded Confirmed Type ALPRAZolam [Xanax] 0.5 mg PO Q6H PRN 11/05/17 11/05/17 History Acetaminophen/Diphenhydramine 1 tab PO 11/05/17 11/05/17 History [Tylenol PM 500-25mg] Acyclovir 400 mg PO DAILY 11/05/17 11/05/17 History Aspirin EC [Ecotrin Low Dose] 81 mg PO DAILY 11/05/17 11/05/17 History Cilostazol [Pletal] 50 mg PO DAILY 11/05/17 11/05/17 History Doxazosin Mesylate [Cardura] 8 mg PO 11/05/17 11/05/17 History Hydrocortisone [Cortef] 5 mg PO 11/05/17 11/05/17 History Hydrocortisone [Cortef] 15 mg PO [facility] 11/05/17 11/05/17 History Insulin NPL/Insulin Lispro 16 unit SQ 11/05/17 11/05/17 History [humaLOG MIX 75-25 VIAL] Insulin NPL/Insulin Lispro 30 unit SQ [facility] 11/05/17 11/05/17 History [humaLOG MIX 75-25 VIAL] Levothyroxine Sodium [Synthroid] 75 mcg PO DAILY 11/05/17 11/05/17 History Losartan Potassium 100 mg PO DAILY 11/05/17 11/05/17 History Metoprolol Succinate (ER) [Toprol 25 mg PO DAILY 11/05/17 11/05/17 History Xl] Metoprolol Succinate (ER) [Toprol 50 mg PO HS 11/05/17 11/05/17 History Xl] Midodrine HCl [ProAmatine] 2.5 mg PO HS 11/05/17 11/05/17 History Prochlorperazine [Compazine] 10 mg PO Q6H PRN 11/05/17 11/05/17 History Rosuvastatin [Crestor] 10 mg PO HS 11/05/17 11/05/17 History Allergies Allergy/AdvReac Type Severity Reaction Status Date / Time Iodinated Contrast- Oral and AdvReac KIDNEY Verified 11/05/17 14:11 IV Dye ISSUES Physical Exam Vitals: Vital Signs Temp Pulse Pulse Resp BP BP Pulse Ox 11/06/17 07:43 98.0 F 96 16 105/50 90 L 11/05/17 19:30 97.9 F 102 H 18 117/56 95 11/05/17 19:00 98.6 F 83 18 111/50 98 11/05/17 16:02 99.1 F 93 20 130/58 94 L 11/05/17 13:35 98.4 F 84 20 108/55 98 Intake and Output 11/05/17 11/06/17 11/06/17 22:59 06:59 14:59 Intake Total 975 Balance 975 Intake: IV 975 Sodium Chloride 0.9% 1, 875 000 ml @ 125 mls/hr IV . Q8H [facility] Rx#:[id number] metroNIDAZOLE-NS PMX 500 100 mg In Saline 1 100ml.bag @ 100 mls/hr IVPB Q8H [facility] Rx#:[id number] Other: Voiding Method Toilet Toilet # Voids 1 1 Weight 90.356 kg General appearance: The patient is alert, oriented, in no acute distress. HET: Head is normocephalic and atraumatic. Pupils are equal and reactive. Oropharynx is clear without lesions. Neck: Supple without lymphadenopathy. Trachea midline. Heart: S1 S2. Regular rate and rhythm. Lungs: No crackles or wheezes are heard. Abdomen: Soft, mildly tender bilateral lower abdomen, nondistended with bowel sounds. No peritoneal signs. No palpable organomegaly or masses. Extremities: Normal skin color and turgor. No cyanosis, rash, ulceration, clubbing, or edema. Radial and pedal pulses are 2/4 bilaterally. Neurological: No focal deficits. Strength and sensation are grossly intact. Results CBC & Chem 7: 11/07/17 06:52 11/07/17 06:52 Labs: Abnormal Lab Results - Last 24 Hours (Table) 11/05/17 11/05/17 11/05/17 Range/Units 14:54 14:54 14:54 RBC 2.41 L (4.30-5.90) m/uL Hgb 8.6 L (13.0-17.5) gm/dL Hct 24.3 L (39.0-53.0) % MCV 100.7 H (80.0-100.0) fL MCH 35.6 H (25.0-35.0) pg Plt Count (150-450) k/uL Lymphocytes # 0.3 L (1.0-4.8) k/uL INR (<1.2) Sodium 133 L (137-145) mmol/L Chloride 96 L (98-107) mmol/L Carbon Dioxide (22-30) mmol/L BUN 41 H (9-20) mg/dL Creatinine 4.09 H (0.66-1.25) mg/dL Glucose 211 H (74-99) mg/dL POC Glucose (mg/dL) (75-99) mg/dL Hemoglobin A1c 6.6 H (4.0-6.0) % Calcium (8.4-10.2) mg/dL Phosphorus (2.5-4.5) mg/dL Total Protein 4.9 L (6.3-8.2) g/dL Albumin 3.1 L (3.5-5.0) g/dL Urine Protein (Negative) Urine Glucose (UA) (Negative) Urine Ketones (Negative) Urine Blood (Negative) Urine RBC (0-5) /hpf Amorphous Sediment (None) /hpf Hyaline Casts (0-2) /lpf Urine Mucus (None) /hpf 11/05/17 11/05/17 11/05/17 Range/Units 16:06 19:56 20:15 RBC 2.22 L (4.30-5.90) m/uL Hgb 7.6 L (13.0-17.5) gm/dL Hct 22.6 L (39.0-53.0) % MCV 101.7 H (80.0-100.0) fL MCH (25.0-35.0) pg Plt Count (150-450) k/uL Lymphocytes # 0.3 L (1.0-4.8) k/uL INR (<1.2) Sodium (137-145) mmol/L Chloride (98-107) mmol/L Carbon Dioxide (22-30) mmol/L BUN (9-20) mg/dL Creatinine (0.66-1.25) mg/dL Glucose (74-99) mg/dL POC Glucose (mg/dL) 202 H (75-99) mg/dL Hemoglobin A1c (4.0-6.0) % Calcium (8.4-10.2) mg/dL Phosphorus (2.5-4.5) mg/dL Total Protein (6.3-8.2) g/dL Albumin (3.5-5.0) g/dL Urine Protein 2+ H (Negative) Urine Glucose (UA) 2+ H (Negative) Urine Ketones Trace H (Negative) Urine Blood Moderate H (Negative) Urine RBC 13 H (0-5) /hpf Amorphous Sediment Rare H (None) /hpf Hyaline Casts 17 H (0-2) /lpf Urine Mucus Rare H (None) /hpf 11/06/17 11/06/17 11/06/17 Range/Units 07:05 08:20 08:20 RBC 2.23 L (4.30-5.90) m/uL Hgb 7.8 L (13.0-17.5) gm/dL Hct 22.5 L (39.0-53.0) % MCV 101.0 H (80.0-100.0) fL MCH (25.0-35.0) pg Plt Count 124 L (150-450) k/uL Lymphocytes # (1.0-4.8) k/uL INR 1.2 H (<1.2) Sodium (137-145) mmol/L Chloride (98-107) mmol/L Carbon Dioxide (22-30) mmol/L BUN (9-20) mg/dL Creatinine (0.66-1.25) mg/dL Glucose (74-99) mg/dL POC Glucose (mg/dL) 133 H (75-99) mg/dL Hemoglobin A1c (4.0-6.0) % Calcium (8.4-10.2) mg/dL Phosphorus (2.5-4.5) mg/dL Total Protein (6.3-8.2) g/dL Albumin (3.5-5.0) g/dL Urine Protein (Negative) Urine Glucose (UA) (Negative) Urine Ketones (Negative) Urine Blood (Negative) Urine RBC (0-5) /hpf Amorphous Sediment (None) /hpf Hyaline Casts (0-2) /lpf Urine Mucus (None) /hpf 11/06/17 Range/Units 08:20 RBC (4.30-5.90) m/uL Hgb (13.0-17.5) gm/dL Hct (39.0-53.0) % MCV (80.0-100.0) fL MCH (25.0-35.0) pg Plt Count (150-450) k/uL Lymphocytes # (1.0-4.8) k/uL INR (<1.2) Sodium 135 L (137-145) mmol/L Chloride (98-107) mmol/L Carbon Dioxide 21 L (22-30) mmol/L BUN 41 H (9-20) mg/dL Creatinine 3.83 H (0.66-1.25) mg/dL Glucose 110 H (74-99) mg/dL POC Glucose (mg/dL) (75-99) mg/dL Hemoglobin A1c (4.0-6.0) % Calcium 7.9 L (8.4-10.2) mg/dL Phosphorus 4.6 H (2.5-4.5) mg/dL Total Protein 4.5 L (6.3-8.2) g/dL Albumin 2.7 L (3.5-5.0) g/dL Urine Protein (Negative) Urine Glucose (UA) (Negative) Urine Ketones (Negative) Urine Blood (Negative) Urine RBC (0-5) /hpf Amorphous Sediment (None) /hpf Hyaline Casts (0-2) /lpf Urine Mucus (None) /hpf CT scan - abdomen: report reviewed (Dr. Joseph) Assessment and Plan (1) Rectal bleeding Narrative/Plan: 77-year-old male with a history of urothelial bladder cancer status post chemoradiation presents with new onset of fever one-week history of bright red blood rectal bleeding lower abdominal discomfort component of acute blood loss anemia CT reported rectosigmoid colitis possible radiation-induced possible self limiting infectious possible ischemic with underlying sigmoid diverticulosis. Current Visit: Yes Status: Acute Code(s): K62.5 - HEMORRHAGE OF ANUS AND RECTUM SNOMED Code(s): 62910060 (2) Bladder cancer Current Visit: Yes Status: Acute Code(s): C67.9 - MALIGNANT NEOPLASM OF BLADDER, UNSPECIFIED SNOMED Code(s): 790088027 Plan: 1. Agree with empiric antibiotics. Clear liquid diet. Stool studies including Clostridium difficile toxin testing. Advised colonoscopy and discussed with spouse and patient tentatively scheduled pending clinical course and C. diff testing. We will reevaluate in a.m. CBC monitoring. The material stress tester has discussed the risks, benefits and alternative therapies for the above-mentioned procedure and for both sedation/analgesia as well as necessary blood product administration, if indicated, as they pertain to this patient. The patient has indicated understanding and acceptance of the risks and procedures discussed. Thank you for this kind referral and the opportunity to participate in the care of your patient. This consultation was discussed with Dr. Joseph. The impression and plan of care have been directed as dictated.
[2017-11-06 11:44] LABS: Glucose,Whole Blood 128 mg/dL (75-99)
[2017-11-06 16:38] LABS: Glucose,Whole Blood 172 mg/dL (75-99)
[2017-11-06] MEDS ORDERED: HYDROCORTISONE SUCCINATE 100 MG/2 ML VIAL IV STA (18:54)
[2017-11-06 20:48] LABS: Glucose,Whole Blood 145 mg/dL (75-99)
[2017-11-06] MEDS: MIDODRINE 5 MG TAB PO SCH (21:49)
[2017-11-06] MEDS: DOXAZOSIN 4 MG TAB PO SCH (21:50)
[2017-11-06] MEDS: ACETAMINOPHEN TAB 500 MG TAB PO SCH (21:50)
[2017-11-06] MEDS: diphenhydrAMINE 25 MG CAP PO SCH (21:50)
[2017-11-06] MEDS: METOPROLOL SUCCINATE (ER) 50 MG TAB.ER.24H PO SCH (21:50)
[2017-11-06] MEDS: ATORVASTATIN 20 MG TAB PO SCH (21:51)
[2017-11-06] MEDS ORDERED: HYDROCORTISONE SUCCINATE 100 MG/2 ML VIAL ONE (23:30)
[2017-11-07] MEDS: SODIUM CHLORIDE 0.9% 1,000 ML IV SCH ×3 (05:27→21:55)
[2017-11-07] MEDS: metroNIDAZOLE-NS PMX 500 MG in SALINE 1 100ML.BAG IVPB SCH ×5 (05:27→16:41)
[2017-11-07] MEDS: LEVOTHYROXINE 75 MCG TAB PO SCH (06:13)
[2017-11-07] MEDS: ACYCLOVIR 200 MG CAP PO SCH (07:09)
[2017-11-07] MEDS: CILOSTAZOL 100 MG TAB PO SCH (07:09)
[2017-11-07] MEDS: HYDROCORTISONE 10 MG TAB PO SCH (07:10)
[2017-11-07 07:12] LABS: Glucose,Whole Blood 149 mg/dL (75-99)
[2017-11-07] MEDS: METOPROLOL SUCCINATE (ER) 25 MG TAB.ER.24H PO SCH (07:12)
[2017-11-07 07:15] LABS: HGB 7.6 gm/dL (13.0-17.5); MCH 35.5 pg (25.0-35.0); MCHC 34.8 g/dL (31.0-37.0); MCV 102.1 fL (80.0-100.0); Macrocytosis Slight; Mean Platelet Volume 7.1; Platelet Count 138 k/uL (150-450); RBC 2.16 m/uL (4.30-5.90); RDW 13.5 % (11.5-15.5); WBC 6.7 k/uL (3.8-10.6)
[2017-11-07] MEDS: INSULIN ASPART 100 UNIT/ML 1 ML 10 ML VIAL SQ SCH ×4 (07:24→21:55)
[2017-11-07] MEDS: INSULIN NPH 300 UNIT/3 ML VIAL SQ SCH ×2 (07:24→18:00)
[2017-11-07 07:28] LABS: Calcium 7.8 mg/dL (8.4-10.2); Potassium 4.1 mmol/L (3.5-5.1)
--- NOTE | 2017-11-07 08:29 | P.PN ---
Subjective Progress Note Date: 11/07/17 Principal diagnosis: Rectal bleeding Feels much better today. No further bowel movements since admission. No bleeding. Afebrile. Tolerating full liquids. Minimal abdominal pain. Hemoglobin 7.6. White count 6.7. BUN 40. Creatinine 4.1. Stool culture pending. C. diff not obtained secondary to lack of bowel movements. Objective - Vital Signs Vital signs: Vital Signs Temp 97.4 F L 11/07/17 06:13 Pulse 75 11/07/17 07:12 Resp 22 11/07/17 06:13 BP 121/68 11/07/17 07:12 Pulse Ox 95 11/07/17 06:13 Intake & Output 11/06/17 11/07/17 11/07/17 18:59 06:59 18:59 Intake Total 700 220 Balance 700 220 Weight 90.356 kg Intake: IV 700 100 Sodium Chloride 0.9% 1, 600 000 ml @ 75 mls/hr IV . [id number] [facility] Rx#:[id number] metroNIDAZOLE-NS PMX 500 100 100 mg In Saline 1 100ml.bag @ 100 mls/hr IVPB Q8H [facility] Rx#:[id number] Oral 120 Other: Voiding Method Toilet Urinal # Voids 2 - Exam General appearance: The patient is alert, oriented, in no acute distress. HET: Head is normocephalic and atraumatic. Pupils are equal and reactive. Oropharynx is clear without lesions. Neck: Supple without lymphadenopathy. Trachea midline. Heart: S1 S2. Regular rate and rhythm. Lungs: No crackles or wheezes are heard. Abdomen: Soft, very mild bilateral lower abdominal tenderness, nondistended with bowel sounds. No peritoneal signs. No palpable organomegaly or masses. Extremities: Normal skin color and turgor. No cyanosis, rash, ulceration, clubbing, or edema. Radial and pedal pulses are 2/4 bilaterally. Neurological: No focal deficits. Strength and sensation are grossly intact. - Labs CBC & Chem 7: 11/07/17 06:52 11/07/17 06:52 Labs: Abnormal Lab Results - Last 24 Hours (Table) 11/06/17 11/06/17 11/06/17 Range/Units 08:20 08:20 08:20 RBC 2.23 L (4.30-5.90) m/uL Hgb 7.8 L (13.0-17.5) gm/dL Hct 22.5 L (39.0-53.0) % MCV 101.0 H (80.0-100.0) fL MCH (25.0-35.0) pg Plt Count 124 L (150-450) k/uL INR 1.2 H (<1.2) Sodium 135 L (137-145) mmol/L Carbon Dioxide 21 L (22-30) mmol/L BUN 41 H (9-20) mg/dL Creatinine 3.83 H (0.66-1.25) mg/dL Glucose 110 H (74-99) mg/dL POC Glucose (mg/dL) (75-99) mg/dL Calcium 7.9 L (8.4-10.2) mg/dL Phosphorus 4.6 H (2.5-4.5) mg/dL Total Protein 4.5 L (6.3-8.2) g/dL Albumin 2.7 L (3.5-5.0) g/dL 11/06/17 11/06/17 11/06/17 Range/Units 11:43 16:36 20:46 RBC (4.30-5.90) m/uL Hgb (13.0-17.5) gm/dL Hct (39.0-53.0) % MCV (80.0-100.0) fL MCH (25.0-35.0) pg Plt Count (150-450) k/uL INR (<1.2) Sodium (137-145) mmol/L Carbon Dioxide (22-30) mmol/L BUN (9-20) mg/dL Creatinine (0.66-1.25) mg/dL Glucose (74-99) mg/dL POC Glucose (mg/dL) 128 H 172 H 145 H (75-99) mg/dL Calcium (8.4-10.2) mg/dL Phosphorus (2.5-4.5) mg/dL Total Protein (6.3-8.2) g/dL Albumin (3.5-5.0) g/dL 11/07/17 11/07/17 11/07/17 Range/Units 06:52 06:52 07:11 RBC 2.16 L (4.30-5.90) m/uL Hgb 7.6 L (13.0-17.5) gm/dL Hct 22.0 L (39.0-53.0) % MCV 102.1 H (80.0-100.0) fL MCH 35.5 H (25.0-35.0) pg Plt Count 138 L (150-450) k/uL INR (<1.2) Sodium 134 L (137-145) mmol/L Carbon Dioxide 21 L (22-30) mmol/L BUN 48 H (9-20) mg/dL Creatinine 4.12 H (0.66-1.25) mg/dL Glucose 132 H (74-99) mg/dL POC Glucose (mg/dL) 149 H (75-99) mg/dL Calcium 7.8 L (8.4-10.2) mg/dL Phosphorus (2.5-4.5) mg/dL Total Protein (6.3-8.2) g/dL Albumin (3.5-5.0) g/dL Microbiology - Last 24 Hours (Table) 11/05/17 14:54 Blood Culture - Preliminary Blood No Growth after 24 hours Assessment and Plan (1) Rectal bleeding Narrative/Plan: 77-year-old male with a history of urothelial bladder cancer status post chemoradiation presents with new onset of fever one-week history of bright red blood rectal bleeding with lower abdominal discomfort component of acute blood loss anemia CT reported rectosigmoid colitis possible radiation-induced possible self limiting infectious possible ischemic with underlying sigmoid diverticulosis. Current Visit: Yes Status: Acute Code(s): K62.5 - HEMORRHAGE OF ANUS AND RECTUM SNOMED Code(s): 17415997 (2) Bladder cancer Current Visit: Yes Status: Acute Code(s): C67.9 - MALIGNANT NEOPLASM OF BLADDER, UNSPECIFIED SNOMED Code(s): 484144231 Plan: 1. Colonoscopy evaluation tomorrow afternoon. Clear liquid diet starting at dinner and continue through breakfast tomorrow. 2. CBC monitoring. The circus trainer has discussed the risks, benefits and alternative therapies for the above-mentioned procedure and for both sedation/analgesia as well as necessary blood product administration, if indicated, as they pertain to this patient. The patient has indicated understanding and acceptance of the risks and procedures discussed. Assessment and plan a care discussed with Dr. Joseph
--- NOTE | 2017-11-07 10:02 | P.PN ---
Subjective Progress Note Date: 11/07/17 Principal diagnosis: rectal pain Patient is a 77-year-old male with a past medical history of bladder cancer currently undergoing chemo and radiation, MGRS, hypertension, diabetes, hypothyroidism, chronic kidney disease stage 3/4 and adrenal insufficiency who presented to the ER with complaints of severe rectal pain. In the emergency department he underwent extensive evaluation. His initial vital signs were within normal limits. Initial laboratory analysis showed a macrocytic anemia, light hyponatremia, and an elevated creatinine. There was concern for GI bleed and infection. Patient was started on zofran, IV fluids, and pain medications. Arrangements were made for admission for acute kidney injury. He was found to have probable proctitis radiation induced vs infectious. He was started on levaquin and flagyl. CT scan was obtained which showed inflammatory changes of the rectosigmoid colon. Radiation oncology was consulted. They felt it was early in the course of treatment to be radiation induced proctitis. GI was consulted and plans are for colonoscopy with biopsy in AM. Patient seen and examined at bedside. Still struggling with intermittent rectal pain. No bowel movements over night. No nausea. No vomiting. Appetite is slowly improving. Objective - Vital Signs Vital signs: Vital Signs Temp 97.4 F L 11/07/17 06:13 Pulse 75 11/07/17 07:12 Resp 22 11/07/17 06:13 BP 121/68 11/07/17 07:12 Pulse Ox 95 11/07/17 06:13 Intake & Output 11/06/17 11/07/17 11/07/17 18:59 06:59 18:59 Intake Total 700 220 Balance 700 220 Weight 90.356 kg Intake: IV 700 100 Sodium Chloride 0.9% 1, 600 000 ml @ 75 mls/hr IV . [id number] [facility] Rx#:[id number] metroNIDAZOLE-NS PMX 500 100 100 mg In Saline 1 100ml.bag @ 100 mls/hr IVPB Q8H [facility] Rx#:[id number] Oral 120 Other: Voiding Method Toilet Urinal # Voids 2 - Exam General: non toxic, no distress, appears younger than stated age Derm: warm, dry Head: atraumatic, normocephalic, symmetric Eyes: EOMI, no lid lag, anicteric sclera Mouth: no lip lesion, mucus membranes moist Cardiovascular: S1S2 reg, no murmur, positive posterior tibial pulse bilateral, Lungs: decreased bs b/l bases, no rhonchi, no rales , no accessory muscle use Abdominal: soft, tender to palpation left lower quadrant, no guarding, no appreciable organomegaly, visual rectal exam performed with no signs of fissure or bright red blood per rectum, no hemorrhoids Ext: no gross muscle atrophy, trace edema, no contractures Neuro: CN II-XI grossly intact, no focal neuro deficits Psych: Alert, oriented, appropriate affect - Labs CBC & Chem 7: 11/07/17 06:52 11/07/17 06:52 Labs: Abnormal Lab Results - Last 24 Hours (Table) 11/06/17 11/06/17 11/06/17 Range/Units 11:43 16:36 20:46 RBC (4.30-5.90) m/uL Hgb (13.0-17.5) gm/dL Hct (39.0-53.0) % MCV (80.0-100.0) fL MCH (25.0-35.0) pg Plt Count (150-450) k/uL Sodium (137-145) mmol/L Carbon Dioxide (22-30) mmol/L BUN (9-20) mg/dL Creatinine (0.66-1.25) mg/dL Glucose (74-99) mg/dL POC Glucose (mg/dL) 128 H 172 H 145 H (75-99) mg/dL Calcium (8.4-10.2) mg/dL 11/07/17 11/07/17 11/07/17 Range/Units 06:52 06:52 07:11 RBC 2.16 L (4.30-5.90) m/uL Hgb 7.6 L (13.0-17.5) gm/dL Hct 22.0 L (39.0-53.0) % MCV 102.1 H (80.0-100.0) fL MCH 35.5 H (25.0-35.0) pg Plt Count 138 L (150-450) k/uL Sodium 134 L (137-145) mmol/L Carbon Dioxide 21 L (22-30) mmol/L BUN 48 H (9-20) mg/dL Creatinine 4.12 H (0.66-1.25) mg/dL Glucose 132 H (74-99) mg/dL POC Glucose (mg/dL) 149 H (75-99) mg/dL Calcium 7.8 L (8.4-10.2) mg/dL Microbiology - Last 24 Hours (Table) 11/05/17 14:54 Blood Culture - Preliminary Blood No Growth after 24 hours Assessment and Plan Assessment: Proctitis, probable infectious vs ischemic, less likely radiation induced -Prophylactic antibiotics with Flagyl and Levaquin -Stool for C. 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 Hypertension, controlled -Continue with metoprolol, parameters added -Cozaar on hold -Follow blood pressures Diabetes mellitus type 2, insulin-dependent -Sliding-scale insulin -Check hemoglobin A1c 6.6 - increase NPH to 15 units twice daily Macrocytic anemia -At baseline per the patient, had blood transfusion prior to removal of bladder tumor on 10/17 -Follow CBC Hyponatremia, improved with a baseline of 126 with an outpatient -IV fluids -Follow sodium levels Adrenal insufficiency -No signs of adrenal crisis -Continue with hydrocortisone 15 in the morning and 5 at night orally, plan on solucortef 50 IV in AM prior to coloncopy Hypothyroidism -Continue with Synthroid DVT prophylaxis: SCDs secondary to blood in stool Discussed with: Patient, nursing, GI Anticipated discharge date: Anticipated discharge place: Home with home health A total of 35 minutes was spent on the care of this complex patient more than 50 % of the time was spent in counseling and care coordination.
[2017-11-07] MEDS: MORPHINE SULFATE 2 MG/ML SYRINGE IV PRN ×2 (11:17→21:52)
[2017-11-07 11:50] LABS: Glucose,Whole Blood 168 mg/dL (75-99)
[2017-11-07] MEDS ORDERED: PEG 3350-NA SULF,BICARB,CL/KCL 4,000 ML BOTTLE PO ONE (16:00)
[2017-11-07 17:13] LABS: Glucose,Whole Blood 143 mg/dL (75-99)
[2017-11-07] MEDS ORDERED: LEVOFLOXACIN 500 MG TAB PO SCH (18:00)
[2017-11-07 20:48] LABS: Glucose,Whole Blood 129 mg/dL (75-99)
[2017-11-07] MEDS: ACETAMINOPHEN TAB 500 MG TAB PO SCH (21:54)
[2017-11-07] MEDS: diphenhydrAMINE 25 MG CAP PO SCH (21:54)
[2017-11-07] MEDS: DOXAZOSIN 4 MG TAB PO SCH (21:54)
[2017-11-07] MEDS: ATORVASTATIN 20 MG TAB PO SCH (21:54)
[2017-11-07] MEDS: MIDODRINE 5 MG TAB PO SCH ×2 (21:54→21:58)
[2017-11-07 22:58] LABS: HCT 20.3 % (39.0-53.0); HGB 7.4 gm/dL (13.0-17.5); MCH 36.4 pg (25.0-35.0); MCHC 36.4 g/dL (31.0-37.0); Mean Platelet Volume 7.2; Platelet Count 146 k/uL (150-450); RBC 2.03 m/uL (4.30-5.90); RDW 13.2 % (11.5-15.5); WBC 7.1 k/uL (3.8-10.6)
--- NOTE | 2017-11-08 00:06 | US ---
EXAMINATION TYPE: US kidneys/renal and bladder DATE OF EXAM: 11/07/2017 COMPARISON: NONE CLINICAL HISTORY: urinary retention, hx of bladder cancer. Pain Hx of Bladder CA mass removed 2 month s ago. EXAM MEASUREMENTS: Right Kidney: 10.1 x 5.8 x 4.4 cm Left Kidney: 10.0 x 5.3 x 3.4 cm Right Kidney: No hydronephrosis or masses seen Left Kidney: No hydronephrosis or masses seen Bladder: anechoic Bilateral Jets seen: Yes There is no evidence for hydronephrosis at this point in time. No nephrolithiasis is seen. No jenna s are identified. The urinary bladder is anechoic. Bilateral ureteral jets are seen. IMPRESSION: Negative retroperitoneal sonogram exam. No evidence of renal mass or obstruction. Normal urinary blad kenna.
[2017-11-08] MEDS: SODIUM CHLORIDE 0.9% 1,000 ML IV SCH ×2 (05:42→07:47)
[2017-11-08] MEDS: LEVOTHYROXINE 75 MCG TAB PO SCH (06:12)
[2017-11-08 07:07] LABS: Glucose,Whole Blood 112 mg/dL (75-99)
[2017-11-08] MEDS ORDERED: HYDROCORTISONE SUCCINATE 100 MG/2 ML VIAL IV STA (07:12)
[2017-11-08] MEDS: metroNIDAZOLE-NS PMX 500 MG in SALINE 1 100ML.BAG IVPB SCH ×4 (07:47→23:41)
[2017-11-08] MEDS: LACTATED RINGERS 1,000 ML IV SCH ×2 (07:48→23:42)
[2017-11-08] MEDS: ACYCLOVIR 200 MG CAP PO SCH (07:50)
[2017-11-08] MEDS: CILOSTAZOL 100 MG TAB PO SCH (07:50)
[2017-11-08] MEDS: INSULIN NPH 300 UNIT/3 ML VIAL SQ SCH ×2 (08:03→18:39)
[2017-11-08] MEDS: INSULIN ASPART 100 UNIT/ML 1 ML 10 ML VIAL SQ SCH ×4 (08:04→21:53)
[2017-11-08 08:26] LABS: HCT 20.4 % (39.0-53.0); MCH 34.4 pg (25.0-35.0); MCHC 33.7 g/dL (31.0-37.0); MCV 102.2 fL (80.0-100.0); Macrocytosis Slight; Mean Platelet Volume 7.5; Platelet Count 171 k/uL (150-450); WBC 5.8 k/uL (3.8-10.6)
[2017-11-08 08:44] LABS: HGB 6.9 gm/dL (13.0-17.5)
[2017-11-08 08:45] LABS: Calcium 7.8 mg/dL (8.4-10.2); Magnesium 1.9 mg/dL (1.6-2.3)
[2017-11-08 08:49] LABS: Potassium 3.1 mmol/L (3.5-5.1)
[2017-11-08] MEDS ORDERED: diphenhydrAMINE 50 MG/ML 1 ML VIAL IVP ONE (09:00)
[2017-11-08] MEDS: HYDROCORTISONE 10 MG TAB PO SCH (09:32)
[2017-11-08] MEDS: METOPROLOL SUCCINATE (ER) 25 MG TAB.ER.24H PO SCH (09:35)
[2017-11-08] MEDS ORDERED: TAMSULOSIN 0.4 MG CAP.ER.24H PO STA (10:01)
[2017-11-08 11:10] LABS: Glucose,Whole Blood 165 mg/dL (75-99)
[2017-11-08] MEDS ORDERED: PROPOFOL 10 MG/ML 20 ML VIAL IV ONE (13:54)
[2017-11-08] MEDS ORDERED: IV FLUID CONTINUATION 1,000 ML IV ONE (13:55)
--- NOTE | 2017-11-08 14:26 | P.PN ---
Subjective Progress Note Date: 11/08/17 Principal diagnosis: rectal pain Patient is a 77-year-old male with a past medical history of bladder cancer currently undergoing chemo and radiation, MGRS, hypertension, diabetes, hypothyroidism, chronic kidney disease stage 3/4 and adrenal insufficiency who presented to the ER with complaints of severe rectal pain. In the emergency department he underwent extensive evaluation. His initial vital signs were within normal limits. Initial laboratory analysis showed a macrocytic anemia, light hyponatremia, and an elevated creatinine. There was concern for GI bleed and infection. Patient was started on zofran, IV fluids, and pain medications. Arrangements were made for admission for acute kidney injury. He was found to have probable proctitis radiation induced vs infectious. He was started on levaquin and flagyl. CT scan was obtained which showed inflammatory changes of the rectosigmoid colon. Radiation oncology was consulted. They felt it was early in the course of treatment to be radiation induced proctitis. GI was consulted and plans are for colonoscopy with biopsy 11/08. He developed acute uirnary retention overnight on 11/07 requiring a atkinson cath to be placed. Urology was consulted and patient was started on flomax. Patient seen and examined at bedside. Exhausted today with prep for colonoscopy yesterday. No chest pain or shortness of breath. No nausea or vomiting. Still having rectal pain when experiencing bloating and gas. No discomfort from the Atkinson catheter. at bedside and updated on plan of care. Objective - Vital Signs Vital signs: Vital Signs Temp 97.7 F 11/08/17 12:57 Pulse 76 11/08/17 12:57 Resp 18 11/08/17 12:57 BP 162/76 11/08/17 12:57 Pulse Ox 96 11/08/17 12:57 Intake & Output 11/07/17 11/08/17 11/08/17 18:59 06:59 18:59 Intake Total 240 240 0 Output Total 367 1150 200 Balance -127 -910 -200 Weight 90.356 kg Intake: Oral 240 240 0 Blood Product 0 Rc As-1 Unit 0 [id number] Output: Urine 1150 200 Post Void Residual 367 Other: Voiding Method Urinal Indwelling Catheter Indwelling Catheter # Voids 2 - Exam General: non toxic, no distress, appears younger than stated age Derm: warm, dry Head: atraumatic, normocephalic, symmetric Eyes: EOMI, no lid lag, anicteric sclera Mouth: no lip lesion, mucus membranes moist Cardiovascular: S1S2 reg, no murmur, positive posterior tibial pulse bilateral, Lungs: decreased bs b/l bases, no rhonchi, no rales , no accessory muscle use Abdominal: soft, nontender to palpation, soft distention, no guarding, no appreciable organomegaly, visual rectal exam performed with no signs of fissure or bright red blood per rectum, no hemorrhoids Ext: no gross muscle atrophy, trace edema, no contractures Neuro: CN II-XI grossly intact, no focal neuro deficits Psych: Alert, oriented, appropriate affect - Labs CBC & Chem 7: 11/08/17 07:23 11/08/17 07:23 Labs: Abnormal Lab Results - Last 24 Hours (Table) 11/05/17 11/07/17 11/07/17 Range/Units 19:56 10:28 17:12 RBC (4.30-5.90) m/uL Hgb (13.0-17.5) gm/dL Hct (39.0-53.0) % MCV (80.0-100.0) fL MCH (25.0-35.0) pg Plt Count (150-450) k/uL Sodium (137-145) mmol/L Potassium (3.5-5.1) mmol/L BUN (9-20) mg/dL Creatinine (0.66-1.25) mg/dL POC Glucose (mg/dL) 143 H (75-99) mg/dL Calcium (8.4-10.2) mg/dL Stool Lactoferrin POSITIVE H (NEGATIVE) Crossmatch See Detail 11/07/17 11/07/17 11/08/17 Range/Units 20:46 22:30 07:05 RBC 2.03 L (4.30-5.90) m/uL Hgb 7.4 L (13.0-17.5) gm/dL Hct 20.3 L (39.0-53.0) % MCV (80.0-100.0) fL MCH 36.4 H (25.0-35.0) pg Plt Count 146 L (150-450) k/uL Sodium (137-145) mmol/L Potassium (3.5-5.1) mmol/L BUN (9-20) mg/dL Creatinine (0.66-1.25) mg/dL POC Glucose (mg/dL) 129 H 112 H (75-99) mg/dL Calcium (8.4-10.2) mg/dL Stool Lactoferrin (NEGATIVE) Crossmatch 11/08/17 11/08/17 11/08/17 Range/Units 07:23 07:23 11:07 RBC 2.00 L (4.30-5.90) m/uL Hgb 6.9 L* (13.0-17.5) gm/dL Hct 20.4 L (39.0-53.0) % MCV 102.2 H (80.0-100.0) fL MCH (25.0-35.0) pg Plt Count (150-450) k/uL Sodium 135 L (137-145) mmol/L Potassium 3.1 L (3.5-5.1) mmol/L BUN 41 H (9-20) mg/dL Creatinine 3.02 H (0.66-1.25) mg/dL POC Glucose (mg/dL) 165 H (75-99) mg/dL Calcium 7.8 L (8.4-10.2) mg/dL Stool Lactoferrin (NEGATIVE) Crossmatch Microbiology - Last 24 Hours (Table) 11/05/17 14:54 Blood Culture - Preliminary Blood No Growth after 48 hours 11/07/17 10:28 Stool Culture - Preliminary Stool Assessment and Plan Assessment: Proctitis, probable infectious vs ischemic, less likely radiation induced -Prophylactic antibiotics with Flagyl and Levaquin -Stool for C. 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 Hypertension, controlled -Continue with metoprolol, parameters added -Cozaar on hold -Follow blood pressures Diabetes mellitus type 2, insulin-dependent -Sliding-scale insulin -Check hemoglobin A1c 6.6 - increase NPH to 15 units twice daily Hyponatremia, improved with a baseline of 126 with an outpatient -IV fluids -Follow sodium levels Adrenal insufficiency -No signs of adrenal crisis -Continue with hydrocortisone 15 in the morning and 5 at night orally, solucortef 50 IV today prior to coloncopy Hypothyroidism -Continue with Synthroid DVT prophylaxis: SCDs secondary to blood in stool Discussed with: Patient, nursing, GI Anticipated discharge date: 11/[address]: Home with home health A total of 25 minutes was spent on the care of this complex patient more than 50 % of the time was spent in counseling and care coordination.
--- NOTE | 2017-11-08 14:30 | P.PCN ---
Date of Procedure: 11/08/17 Procedure(s) Performed: Procedure: Colonoscopy and biopsy. Preoperative diagnosis: Rectal bleeding. Postoperative diagnosis: 1. 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 2. Biopsies obtained. 3. Sigmoid diverticulosis. 4. Poor preparation but no other abnormalities noted to the cecum or any spontaneous bleeding. Preparation: GoLYTELY prep. Sedation: Was provided by anesthesia. 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 Last dose of radiation was one week ago. Patient admitted with 1 week history of multiple blood tinged bowel movements with lower abdominal pressure-like pain and new onset of fever T-max 103 at home. No history GI bleeding. His last colonoscopy was 10 years ago. Receiving empiric antibiotics. Stool studies requested. No recurrent fever since admission. No anticoagulants. Denies hematemesis or melena. No recent antibiotics. CT of the abdomen and pelvis without contrast reported mild inflammatory changes of the distal rectosigmoid colon consistent with colitis and sigmoid diverticulosis. White count 6.6-7.7. Hemoglobin 7.8-8.6. MCV 101 , this morning Hb 6.9 receiving transfusion, platelet 124. INR 1.2. BUN 41. Creatinine 4.0. LFTs within normal limits. Afebrile. This evaluation is to assess for a source of bleeding. Other details are summarized in the history and physical and dictated consultations and progress notes. Procedure: With the patient on his left lateral decubitus position and after informed consent and adequate sedation, the perianal area was inspected and it did not show any fissures or fistulas. There were no masses felt on digital rectal examination. The Olympus CFQ 160L video colonoscope was then inserted in the rectum in the usual fashion and advanced to the cecum. The preparation was poor and there was no obvious tumors or spontaneous bleeding. Multiple diverticular orifices were seen scattered in the sigmoid with no evidence of diverticulitis or strictures. In the distal sigmoid and in the rectum there was evidence of colitis with edema, erythema, friability and superficial ulcerations but no spontaneous bleeding. There was an intervening normal looking segment between the rectum and the most distal aspect of the sigmoid. The involved segment in the sigmoid is between 20 and 30 cm from the anal verge. I obtained biopsies from the sigmoid and rectum then the endoscope was withdrawn. The patient tolerated the procedure well. Plan: The patient was briefed regarding the findings of this exam and I discussed with the family. Will await pathology results. Will allow low- residue diet and make further plans based on his course
[2017-11-08 16:54] LABS: Glucose,Whole Blood 182 mg/dL (75-99)
[2017-11-08 17:18] LABS: HCT 24.1 % (39.0-53.0); MCH 34.4 pg (25.0-35.0); MCHC 35.1 g/dL (31.0-37.0); MCV 97.8 fL (80.0-100.0); Platelet Count 154 k/uL (150-450); RBC 2.46 m/uL (4.30-5.90); RDW 14.8 % (11.5-15.5); WBC 7.7 k/uL (3.8-10.6)
[2017-11-08 17:35] LABS: HGB 8.5 gm/dL (13.0-17.5)
[2017-11-08 20:33] LABS: Glucose,Whole Blood 173 mg/dL (75-99)
[2017-11-08] MEDS: diphenhydrAMINE 25 MG CAP PO SCH (21:52)
[2017-11-08] MEDS: DOXAZOSIN 4 MG TAB PO SCH (21:52)
[2017-11-08] MEDS: ATORVASTATIN 20 MG TAB PO SCH (21:52)
[2017-11-08] MEDS: METOPROLOL TARTRATE 25 MG TAB PO SCH (21:52)
[2017-11-08] MEDS: ACETAMINOPHEN TAB 500 MG TAB PO SCH (22:11)
[2017-11-08 23:48] LABS: Basophils % (A) 0 %; Eosinophils % (A) 1 %; HCT 22.9 % (39.0-53.0); HGB 8.2 gm/dL (13.0-17.5); Lymphocytes # (A) 0.4 k/uL (1.0-4.8); Lymphocytes % (A) 6 %; MCH 34.8 pg (25.0-35.0); MCV 96.8 fL (80.0-100.0); Mean Platelet Volume 7.2; Monocytes # (A) 0.6 k/uL (0-1.0); Monocytes % (A) 9 %; Neutrophils # (A) 5.4 k/uL (1.3-7.7); Neutrophils % (A) 83 %; Platelet Count 158 k/uL (150-450); RBC 2.36 m/uL (4.30-5.90); WBC 6.5 k/uL (3.8-10.6)
[2017-11-09] MEDS: LEVOTHYROXINE 75 MCG TAB PO SCH (06:14)
[2017-11-09 06:57] LABS: Glucose,Whole Blood 77 mg/dL (75-99)
[2017-11-09 07:32] LABS: Basophils % (A) 0 %; Eosinophils # (A) 0.2 k/uL (0-0.7); Eosinophils % (A) 4 %; HCT 23.2 % (39.0-53.0); HGB 8.2 gm/dL (13.0-17.5); Lymphocytes # (A) 0.4 k/uL (1.0-4.8); Lymphocytes % (A) 8 %; MCH 34.6 pg (25.0-35.0); MCHC 35.3 g/dL (31.0-37.0); MCV 98.1 fL (80.0-100.0); Mean Platelet Volume 6.8; Monocytes # (A) 0.5 k/uL (0-1.0); Monocytes % (A) 9 %; Neutrophils # (A) 4.1 k/uL (1.3-7.7); Neutrophils % (A) 77 %; Platelet Count 165 k/uL (150-450); RBC 2.36 m/uL (4.30-5.90); RDW 15.2 % (11.5-15.5); WBC 5.4 k/uL (3.8-10.6)
[2017-11-09 08:01] LABS: Potassium 2.9 mmol/L (3.5-5.1)
[2017-11-09] MEDS: METOPROLOL TARTRATE 25 MG TAB PO SCH (08:22)
[2017-11-09] MEDS: ACYCLOVIR 200 MG CAP PO SCH (08:23)
[2017-11-09] MEDS: CILOSTAZOL 100 MG TAB PO SCH (08:23)
[2017-11-09] MEDS: HYDROCORTISONE 10 MG TAB PO SCH (08:23)
[2017-11-09] MEDS: INSULIN ASPART 100 UNIT/ML 1 ML 10 ML VIAL SQ SCH ×2 (08:24→12:52)
[2017-11-09] MEDS: metroNIDAZOLE-NS PMX 500 MG in SALINE 1 100ML.BAG IVPB SCH (08:24)
[2017-11-09] MEDS: INSULIN NPH 300 UNIT/3 ML VIAL SQ SCH (08:28)
[2017-11-09] MEDS ORDERED: POTASSIUM CHLORIDE ER 20 MEQ TAB.ER PO STA (08:44)
--- NOTE | 2017-11-09 09:02 | P.PN ---
Subjective Progress Note Date: 11/09/17 Principal diagnosis: Rectal bleeding Status post colonoscopy evaluation yesterday for rectal bleeding with findings of distal sigmoid colitis proctitis probably representing radiation colitis. Biopsies pending. Sigmoid diverticulosis with poor prep. Still passing loose mildly blood tinged bowel movements with mild lower abdominal discomfort. Afebrile. Requesting antidiarrheals. Hemoglobin 8.2 unchanged from yesterday. BUN 34. Creatinine 2.3. Objective - Vital Signs Vital signs: Vital Signs Temp 96.5 F L 11/09/17 08:45 Pulse 73 11/09/17 08:45 Resp 15 11/09/17 08:45 BP 176/76 11/09/17 08:45 Pulse Ox 94 L 11/09/17 08:45 Intake & Output 11/08/17 11/09/17 11/09/17 18:59 06:59 18:59 Intake Total 410 380 Output Total 200 940 Balance 210 -560 Weight 90.356 kg 90.356 kg Intake: IV 100 Intake, IV Titration 320 Amount Lactated Ringers 1,000 ml 220 @ 20 mls/hr IV .Q24H [facility] Rx#:[id number] metroNIDAZOLE-NS PMX 500 100 mg In Saline 1 100ml.bag @ 100 mls/hr IVPB Q8H [facility] Rx#:[id number] Oral 0 60 Blood Product 310 Rc As-1 Unit 310 [id number] Output: Urine 200 940 Straight 940 Other: Voiding Method Indwelling Catheter Indwelling Catheter # Bowel Movements 6 - Exam General appearance: The patient is alert, oriented, in no acute distress. HET: Head is normocephalic and atraumatic. Pupils are equal and reactive. Oropharynx is clear without lesions. Neck: Supple without lymphadenopathy. Trachea midline. Heart: S1 S2. Regular rate and rhythm. Lungs: No crackles or wheezes are heard. Abdomen: Soft, very mild bilateral lower abdominal tenderness, nondistended with bowel sounds. No peritoneal signs. No palpable organomegaly or masses. Extremities: Normal skin color and turgor. No cyanosis, rash, ulceration, clubbing, or edema. Radial and pedal pulses are 2/4 bilaterally. Neurological: No focal deficits. Strength and sensation are grossly intact. - Labs CBC & Chem 7: 11/09/17 07:21 11/09/17 07:21 Labs: Abnormal Lab Results - Last 24 Hours (Table) 11/05/17 11/08/17 11/08/17 Range/Units 19:56 11:07 16:49 RBC (4.30-5.90) m/uL Hgb (13.0-17.5) gm/dL Hct (39.0-53.0) % Lymphocytes # (1.0-4.8) k/uL Potassium (3.5-5.1) mmol/L Carbon Dioxide (22-30) mmol/L BUN (9-20) mg/dL Creatinine (0.66-1.25) mg/dL Glucose (74-99) mg/dL POC Glucose (mg/dL) 165 H 182 H (75-99) mg/dL Calcium (8.4-10.2) mg/dL Crossmatch See Detail 11/08/17 11/08/17 11/08/17 Range/Units 17:01 20:29 23:16 RBC 2.46 L 2.36 L (4.30-5.90) m/uL Hgb 8.5 L D 8.2 L (13.0-17.5) gm/dL Hct 24.1 L 22.9 L (39.0-53.0) % Lymphocytes # 0.4 L (1.0-4.8) k/uL Potassium (3.5-5.1) mmol/L Carbon Dioxide (22-30) mmol/L BUN (9-20) mg/dL Creatinine (0.66-1.25) mg/dL Glucose (74-99) mg/dL POC Glucose (mg/dL) 173 H (75-99) mg/dL Calcium (8.4-10.2) mg/dL Crossmatch 11/09/17 11/09/17 Range/Units 07:21 07:21 RBC 2.36 L (4.30-5.90) m/uL Hgb 8.2 L (13.0-17.5) gm/dL Hct 23.2 L (39.0-53.0) % Lymphocytes # 0.4 L (1.0-4.8) k/uL Potassium 2.9 L* (3.5-5.1) mmol/L Carbon Dioxide 20 L (22-30) mmol/L BUN 34 H (9-20) mg/dL Creatinine 2.39 H (0.66-1.25) mg/dL Glucose 70 L (74-99) mg/dL POC Glucose (mg/dL) (75-99) mg/dL Calcium 8.0 L (8.4-10.2) mg/dL Crossmatch Microbiology - Last 24 Hours (Table) 11/05/17 14:54 Blood Culture - Preliminary Blood No Growth after 72 hours Assessment and Plan (1) Rectal bleeding Narrative/Plan: Distal sigmoid colitis proctitis suspect radiation-induced status post colonoscopy biopsies pending. Current Visit: Yes Status: Acute Code(s): K62.5 - HEMORRHAGE OF ANUS AND RECTUM SNOMED Code(s): 55201031 (2) Bladder cancer Current Visit: Yes Status: Acute Code(s): C67.9 - MALIGNANT NEOPLASM OF BLADDER, UNSPECIFIED SNOMED Code(s): 681785053 Plan: 1. Lomotil 1 tablet every 6 hours as needed. Continuous supportive measures. We'll defer to oncology team for direction of radiation treatments. We'll residue diet as tolerated. Await biopsies. Assessment and plan a care discussed with Dr. Joseph
[2017-11-09] MEDS: POTASSIUM CHLORIDE 20 MEQ in WATER FOR INJECTION 1 100ML.BAG IVPB SCH ×2 (09:45→18:08)
[2017-11-09] MEDS: DIPHENOX-ATROP 2.5-0.025 MG 1 EACH TAB PO PRN ×2 (09:48→15:50)
[2017-11-09 11:20] LABS: Glucose,Whole Blood 118 mg/dL (75-99)
[2017-11-09 16:08] VITALS: BP 174/84; PULSE 71; RESP 20; TEMP 98.7
--- NOTE | 2017-11-09 16:41 | P.DS ---
Providers Date of admission: 11/05/17 16:23 Expected date of discharge: 11/09/17 Attending physician: Karoline Bhatt DO Consults: 11/05/17 17:49 Consult Physician Routine Consulting Provider: Ap Erazo Consult Reason/Comments: radiation proctatis Do you want consulting provider notified?: Yes 11/08/17 07:16 Consult Physician Routine Consulting Provider: Otto Boothe Consult Reason/Comments: urinary retention, s/p TURBT 1 month ago Do you want consulting provider notified?: Yes Primary care physician: Nagi Saucedo MD Hospital Course: Discharge Diagnosis: Proctitis, suspect radiation-induced Macrocytic anemia status post 1 unit of packed red blood cells Acute urinary retention, resolved Acute kidney injury, resolved Chronic kidney disease stage 3/4 Hypertension Diabetes mellitus type 2, insulin-dependent Hyponatremia Adrenal insufficiency Hypothyroidism Hospital course: Patient is a 77-year-old male with a past medical history of bladder cancer currently undergoing chemo and radiation, MGRS, hypertension, diabetes, hypothyroidism, chronic kidney disease stage 3/4 and adrenal insufficiency who presented to the ER with complaints of severe rectal pain. In the emergency department he underwent extensive evaluation. His initial vital signs were within normal limits. Initial laboratory analysis showed a macrocytic anemia, light hyponatremia, and an elevated creatinine. There was concern for GI bleed and infection. Patient was started on zofran, IV fluids, and pain medications. Arrangements were made for admission for acute kidney injury. He was found to have probable proctitis radiation induced vs infectious. He was started on levaquin and flagyl. CT scan was obtained which showed inflammatory changes of the rectosigmoid colon. Radiation oncology was consulted. They felt it was early in the course of treatment to be radiation induced proctitis. GI was consulted and he underwent colonoscopy with biopsy 11/08. He tolerated the procedure well. He developed acute uirnary retention overnight on 11/07 requiring a atkinson cath to be placed. Patient was started on flomax. His cathater was discontinued on his own as he was able to urinate with a negative post void residual. His creatinine greatly improved. He was determined stable for discharge home. He will complete a course of antibiotics for the proctitis while await biopsy results. He will stay of the aspirin for the next 7 days. He will continue on flomax. He'll follow-up with Dr. Maynard of GI, Dr. Erazo of radiation oncology, his family practice physician Dr. Saucedo, and his residence supervisor. Patient seen and examined at bedside. Still having some pain with gas in the rectal area but getting better. No nausea or vomiting. Tolerating diet well. Feeling well and wants to go home. Vital signs reviewed and stable. General: non toxic, no distress, appears at stated age Derm: warm, dry Head: atraumatic, normocephalic, symmetric Eyes: EOMI, no lid lag, anicteric sclera Mouth: no lip lesion, mucus membranes moist Cardiovascular: S1S2 reg, no murmur, positive posterior tibial pulse bilateral, Lungs: CTA bilateral, no rhonchi, no rales , no accessory muscle use Abdominal: soft, nontender to palpation, no guarding, no appreciable organomegaly Ext: no gross muscle atrophy, 1+ edema, no contractures Neuro: CN II-XI grossly intact, no focal neuro deficits Psych: Alert, oriented, appropriate affect A total of 35 minutes of time were spent preparing this complex discharge summary . Pertinent Studies: Ultrasound of the letters and kidneys-negative retroperitoneal sonogram. No renal mass or obstruction. Normal bladder. CT abdomen and pelvis-small pericardial effusion unchanged, mild inflammatory change in the distal rectosigmoid colon consistent with colitis, sigmoid diverticulosis, gallbladder wall thickening Procedures: Colonoscopy with biopsy 11/08/17 Patient Condition at Discharge: Stable Plan - Discharge Summary Discharge Rx Participant: Yes New Discharge Prescriptions: New Levofloxacin [Levaquin] 500 mg PO Q48H #2 tab metroNIDAZOLE [Flagyl] 500 mg PO BID #6 tab Tamsulosin [Flomax] 0.4 mg PO HS #30 cap Diphenox-Atrop 2.5-0.025 mg [Lomotil] 1 each PO Q6HR PRN #28 tab PRN Reason: Diarrhea Continue Prochlorperazine [Compazine] 10 mg PO Q6H PRN PRN Reason: Nausea Acetaminophen/Diphenhydramine [Tylenol PM 500-25mg] 1 tab PO HS ALPRAZolam [Xanax] 0.5 mg PO Q6H PRN PRN Reason: Anxiety Acyclovir 400 mg PO DAILY Hydrocortisone [Cortef] 5 mg PO HS Hydrocortisone [Cortef] 15 mg PO QAM Cilostazol [Pletal] 50 mg PO DAILY Rosuvastatin [Crestor] 10 mg PO HS Levothyroxine Sodium [Synthroid] 75 mcg PO DAILY Insulin NPL/Insulin Lispro [humaLOG MIX 75-25 VIAL] 16 unit SQ HS Insulin NPL/Insulin Lispro [humaLOG MIX 75-25 VIAL] 30 unit SQ QAM Doxazosin Mesylate [Cardura] 8 mg PO HS Metoprolol Succinate (ER) [Toprol XL] 50 mg PO HS Metoprolol Succinate (ER) [Toprol XL] 25 mg PO DAILY Losartan Potassium 100 mg PO DAILY Discontinued Midodrine HCl [ProAmatine] 2.5 mg PO HS Aspirin EC [Ecotrin Low Dose] 81 mg PO DAILY Discharge Medication List ALPRAZolam [Xanax] 0.5 mg PO Q6H PRN 11/05/17 [History] Acetaminophen/Diphenhydramine [Tylenol PM 500-25mg] 1 tab PO HS 11/05/17 [ History] Acyclovir 400 mg PO DAILY 11/05/17 [History] Cilostazol [Pletal] 50 mg PO DAILY 11/05/17 [History] Doxazosin Mesylate [Cardura] 8 mg PO HS 11/05/17 [History] Hydrocortisone [Cortef] 5 mg PO HS 11/05/17 [History] Hydrocortisone [Cortef] 15 mg PO QAM 11/05/17 [History] Insulin NPL/Insulin Lispro [humaLOG MIX 75-25 VIAL] 16 unit SQ HS 11/05/17 [ History] Insulin NPL/Insulin Lispro [humaLOG MIX 75-25 VIAL] 30 unit SQ QAM 11/05/17 [ History] Levothyroxine Sodium [Synthroid] 75 mcg PO DAILY 11/05/17 [History] Losartan Potassium 100 mg PO DAILY 11/05/17 [History] Metoprolol Succinate (ER) [Toprol XL] 25 mg PO DAILY 11/05/17 [History] Metoprolol Succinate (ER) [Toprol XL] 50 mg PO HS 11/05/17 [History] Prochlorperazine [Compazine] 10 mg PO Q6H PRN 11/05/17 [History] Rosuvastatin [Crestor] 10 mg PO HS 11/05/17 [History] Diphenox-Atrop 2.5-0.025 mg [Lomotil] 1 each PO Q6HR PRN #28 tab 07/13/18 [Rx] Levofloxacin [Levaquin] 500 mg PO Q48H #2 tab 11/09/17 [Rx] Tamsulosin [Flomax] 0.4 mg PO HS #30 cap 11/09/17 [Rx] metroNIDAZOLE [Flagyl] 500 mg PO BID #6 tab 11/09/17 [Rx] Follow up Appointment(s)/Referral(s): Jerome Joseph MD [STAFF PHYSICIAN] - 1 Week Ap Erazo MD [STAFF PHYSICIAN] - 1 Week Nagi Saucedo MD [Primary Care Provider] - 1-2 Days Activity/Diet/Wound Care/Special Instructions: Heart healthy diet Activity as tolerated Stay off your Aspirin for an additional 7 days and then resume Aspirin 81 mg daily Follow up with your Kidney doctor next week and urologist as scheduled Pending Studies Pending Results: Biopsy results
== END 2017-11-09 18:05 | disposition home or self-care (01) | DRG 394 ==
LOC: EC 13:05 → 5MS5E 16:23 → 5ONC 18:23
PROVIDERS: ADMIT Internal Medicine; ATTEND Internal Medicine
PROC: 0DBN8ZX Excision of Sigmoid Colon, Via Natural or Artificial Opening Endoscopic, Diagnostic (ICD-10-PCS; 2017-11-08)
PROC: 30233N1 Transfusion of Nonautologous Red Blood Cells into Peripheral Vein, Percutaneous Approach (ICD-10-PCS; 2017-11-08)
PROC: 0DBP8ZX Excision of Rectum, Via Natural or Artificial Opening Endoscopic, Diagnostic (ICD-10-PCS; principal; 2017-11-08 11:55)
DX: K62.7 Radiation proctitis (principal); C90.00 Multiple myeloma not having achieved remission; E27.40 Unspecified adrenocortical insufficiency; E87.1 Hypo-osmolality and hyponatremia; K52.0 Gastroenteritis and colitis due to radiation; N17.9 Acute kidney failure, unspecified; N18.4 Chronic kidney disease, stage 4 (severe); D62 Acute posthemorrhagic anemia; Y84.2 Radiological procedure and radiotherapy as the cause of abnormal reaction of the patient, or of later complication, without mention of misadventure at the time of the procedure; C67.9 Malignant neoplasm of bladder, unspecified; D53.9 Nutritional anemia, unspecified; E03.9 Hypothyroidism, unspecified; E11.22 Type 2 diabetes mellitus with diabetic chronic kidney disease; I12.9 Hypertensive chronic kidney disease with stage 1 through stage 4 chronic kidney disease, or unspecified chronic kidney disease; I25.2 Old myocardial infarction; K57.30 Diverticulosis of large intestine without perforation or abscess without bleeding; Z66 Do not resuscitate; Z79.4 Long term (current) use of insulin; Z82.49 Family history of ischemic heart disease and other diseases of the circulatory system; Z86.73 Personal history of transient ischemic attack (TIA), and cerebral infarction without residual deficits; Z87.891 Personal history of nicotine dependence; Z92.21 Personal history of antineoplastic chemotherapy; Z92.3 Personal history of irradiation; Z98.49 Cataract extraction status, unspecified eye; R33.8 Other retention of urine; Z79.890 Hormone replacement therapy; Z79.899 Other long term (current) drug therapy; D47.2 Monoclonal gammopathy; Z91.041 Radiographic dye allergy status; R63.4 Abnormal weight loss; Z68.32 Body mass index [BMI] 32.0-32.9, adult; F40.240 Claustrophobia
CPT/HCPCS: 36415; 45380; 71046; 74176; 76770; 80048; 80053; 81001; 83036; 83605; 83630; 83735; 84100; 85025; 85027; 85610; 86850; 86870; 86880; 86900; 86901; 86902; 86920; 87040; 87045; 87046; 87324; 88305; 88341; 88342; 96361; 96374; 96375; 99285